=== PATIENT | female | born 1960 | race Caucasian/White ===

== ENCOUNTER 2020-04-02 07:22 | Outpatient (CLI) | payer OTHER, BC, SELFPAY ==
--- NOTE | ~2020-04-02 | DEXA_ITS ---
Bone Density Report Name: Isabela Christine Age: 60 Sex: Female Ethnicity: White Date of : 1960 Indication: postmenopausal; height loss; asthma or emphysema; hysterectomy; Referring Provider: RUIZ KEY Study: Bone densitometry was performed. Exam Date: April 02, 2020 Accession number: [id number] Bone Density: Region BMD T-score Z-score Classification AP Spine (L1, L2) 1.195 2.0 3.2 Normal Femoral Neck (Left) 0.889 0.4 1.6 Normal Total Hip (Left) 1.127 1.5 2.4 Normal Total Hip Bilateral Avg 1.078 1.1 2.0 Normal Femoral Neck (Right) 0.816 -0.3 0.9 Normal Total Hip (Right) 1.027 0.7 1.5 Normal World Health Organization criteria for BMD impression classify patients as: Normal (T-score at or above -1.0), Osteopenia (T-score between -1.0 and -2.5), or Osteoporosis (T-score at or below -2.5). 10-year Fracture Risk: FRAX not reported because: All T-scores for Spine Total, Hip Total, Femoral Neck at or above -1.0 Clinical Information Provided by Patient: Has used the following medications: Calcium Has the following medical conditions: Asthma or Emphysema, Hysterectomy Patient maximum height was 66 Menopause Age: 52 Drinks caffeinated beverages Onset of menses at age 15 Number of children 2 Impression: The patient has normal bone mass. Discussion: BONE DENSITY IS ABOVE THE MINIMUM DESIRABLE LEVEL AT ALL SKELETAL SITES TESTED. This patient?s bone mineral density is above the minimum desirable level (T-score -1.0 or better) at all sites measured. The patient should follow a healthful lifestyle (good nutrition with adequate calcium and vitamin D, and appropriate weight-bearing exercise). Follow-Up: Consider repeating this study in 5 years or sooner if there is some new clinical indication. Reported by: [facility] on 04/02/2020 7:53:00 AM. Reviewed, dictated and finalized at location A[place] MUÑIZ
--- NOTE | ~2020-04-02 | MM_ITS ---
EXAMINATION: MM screening [facility] BI w [facility] HISTORY: Screening mammogram TECHNIQUE: Craniocaudal and mediolateral oblique 3-D tomosynthesis images were obtained and synthetic 2-D images were generated. CAD analysis was submitted and interpreted. COMPARISON: 10/11/2018, 09/14/2017, 09/10/2016 BREAST PARENCHYMAL COMPOSITION: The breasts are almost entirely fatty. FINDINGS: There is no evidence of suspicious mass, calcification, or architectural distortion to sugg est malignancy in either breast. There has been no suspicious interval change. IMPRESSION: 1. No mammographic evidence of malignancy. 2. Recommend routine screening mammography in one year. BI-RADS Category 1: Negative Reviewed, dictated and finalized at location A.
== END 2020-04-02 07:23 | disposition home or self-care (01) ==
LOC: ANHIMG 07:28
PROVIDERS: PCP Family Medicine; Visit Provider Obstetrics & Gynecology
DX: Z12.31 Encounter for screening mammogram for malignant neoplasm of breast (principal); Z13.820 Encounter for screening for osteoporosis; Z78.0 Asymptomatic menopausal state
CPT/HCPCS: 77063; 77067; 77080

== ENCOUNTER 2020-08-30 15:24 | Outpatient (CLI) | payer BC, SELFPAY ==
--- NOTE | 2020-08-30 15:54 | ECG_ITS ---
Measurements Intervals [place]augen Rate: 58 P: 46 AL: 162 QRS: 80 QRSD: 89 T: 91 QT: 440 QTc: 435 Interpretive Statements SINUS BRADYCARDIA MINIMAL Q WAVES- INFERIOR LEADS NONSPECIFIC T-WAVE ABNORMALITY- ANTERIOR LEADS BORDERLINE ECG Electronically Signed On 08-30-2020 16:16:24 LEGAL EXECUTIVE by Ronn Macario D.O.
== END 2020-08-30 15:25 | disposition home or self-care (01) ==
LOC: ANHCARD 15:26
PROVIDERS: PCP Family Medicine; Visit Provider Physician Assistant
DX: R07.9 Chest pain, unspecified (principal); R94.31 Abnormal electrocardiogram [ECG] [EKG]
CPT/HCPCS: 93005

== ENCOUNTER 2021-05-16 07:38 | Outpatient (CLI) | payer BC, SELFPAY ==
--- NOTE | ~2021-05-16 | MM_ITS ---
EXAMINATION: MM screening [facility] BI w [place] HISTORY: Screening mammogram TECHNIQUE: Craniocaudal and mediolateral oblique 3-D tomosynthesis images were obtained and synthetic 2-D images were generated. CAD analysis was submitted and interpreted. COMPARISON: 04/02/2020, 10/11/2018, 09/14/2017 BREAST PARENCHYMAL COMPOSITION: There are scattered areas of fibroglandular density. FINDINGS: There is no evidence of suspicious mass, calcification, or architectural distortion to sugg est malignancy in either breast. There has been no suspicious interval change. IMPRESSION: 1. No mammographic evidence of malignancy. 2. Recommend routine screening mammography in one year. BI-RADS Category 1: Negative Reviewed, dictated and finalized at location A.
== END 2021-05-16 07:39 | disposition home or self-care (01) ==
LOC: ANHIMG 07:42
PROVIDERS: PCP Family Medicine; Visit Provider Obstetrics & Gynecology
DX: Z12.31 Encounter for screening mammogram for malignant neoplasm of breast (principal)
CPT/HCPCS: 77063; 77067

== ENCOUNTER 2022-04-21 08:52 | Outpatient (CLI) | payer BC, SELFPAY | END 2022-04-21 08:53 | disposition home or self-care (01) | LOC: ANHAUDIO 08:53 | PROVIDERS: PCP Family Medicine; Referring Provider Otolaryngology; Visit Provider Otolaryngology | DX: H91.93 Unspecified hearing loss, bilateral (principal) | CPT/HCPCS: 92557; 92567 ==

== ENCOUNTER 2022-09-24 15:32 | Outpatient (CLI) | payer BC, SELFPAY ==
--- NOTE | ~2022-09-24 | MM_ITS ---
EXAMINATION: MM screening [facility] BI w [place] HISTORY: Screening mammogram TECHNIQUE: Craniocaudal and mediolateral oblique 3-D tomosynthesis images were obtained and synthetic 2-D images were generated. CAD analysis was submitted and interpreted. COMPARISON: 05/16/2021, 04/02/2020, 10/11/2018 BREAST PARENCHYMAL COMPOSITION: There are scattered areas of fibroglandular density. FINDINGS: No suspicious mass, calcification, or architectural distortion are identified in either abigail ast to suggest malignancy. There has been no suspicious interval change. IMPRESSION: 1. No mammographic evidence of malignancy. 2. Recommend routine screening mammography in one year. BI-RADS Category 1: Negative Reviewed, dictated and finalized at location A. EY OPERATIONS DIRECTOR
== END 2022-09-24 15:33 | disposition home or self-care (01) ==
PROVIDERS: PCP Family Medicine; Visit Provider Obstetrics & Gynecology
DX: Z12.31 Encounter for screening mammogram for malignant neoplasm of breast (principal)
CPT/HCPCS: 77063; 77067

== ENCOUNTER 2023-09-30 13:55 | Outpatient (CLI) | payer BC, SELFPAY ==
--- NOTE | ~2023-09-30 | MM_ITS ---
EXAMINATION: MM screening [facility] BI w [facility] HISTORY: Screening mammogram TECHNIQUE: Craniocaudal and mediolateral oblique 3-D tomosynthesis images were obtained and synthetic 2-D images were generated. CAD analysis was submitted and interpreted. COMPARISON: 09/24/2022, 05/16/2021, 04/02/2020 BREAST PARENCHYMAL COMPOSITION: There are scattered areas of fibroglandular density. FINDINGS: No suspicious mass, calcification, or architectural distortion are identified in either abigail ast to suggest malignancy. There has been no suspicious interval change. IMPRESSION: 1. No mammographic evidence of malignancy. 2. Recommend routine screening mammography in one year. BI-RADS Category 1: Negative Reviewed, dictated and finalized at location A. ICAL DOCUMENTATION DEVELOPER
== END 2023-09-30 13:56 | disposition home or self-care (01) ==
PROVIDERS: PCP Family Medicine; Visit Provider Obstetrics & Gynecology
DX: Z12.31 Encounter for screening mammogram for malignant neoplasm of breast (principal)
CPT/HCPCS: 77063; 77067

== ENCOUNTER 2023-12-02 01:24 | Day surgery (SDC) | payer BC, SELFPAY ==
[2023-11-22 15:19] VITALS: BMI 30.7
--- NOTE | 2023-11-30 09:15 | SUR.PREOP ---
Patient called regarding upcoming procedure. Reviewed preop instructions, appointment times, and procedure prep.
[2023-12-02 07:49] VITALS: BP 116/63; PULSE 75; RESP 18; TEMP 36.1; O2SAT 100
[2023-12-02] MEDS: LACTATED RINGERS 1,000 ML 150 ML IV CONT (08:07)
--- NOTE | 2023-12-02 08:32 | WPDANESEPPF ---
Anes - Initial Pre Proc Eval Procedure: Operation Date: 12/02/23 09:00 Proposed Procedures p Screening Colonoscopy - Estevan Dillard DO Date/Time: 12/02/23 08:32 Surgeon: Estevan Dillard DO Pre Op Diagnosis: hx of colon polyps Patient Data Age: 63 Gender: F Height: 1.68 m Weight: 84.1 kg Last Vital Signs Temp 97 F L 12/02/23 07:49 Pulse 75 12/02/23 07:49 Resp 18 12/02/23 07:49 BP 116/63 12/02/23 07:49 Pulse Ox 100 12/02/23 07:49 O2 Del Method Room Air 12/02/23 07:49 Allergies Allergy/AdvReac Type Severity Reaction Status Date / Time RED MEAT Allergy Severe SWELLING, Uncoded 12/02/23 07:48 HIVES Cat Dander Allergy Intermediate RASH, Uncoded 12/02/23 07:48 SINUS ISSUES Cultivated Oat Pollen Allergy Intermediate RASH, Uncoded 12/02/23 07:48 SINUS ISSUES Dog Dander Allergy Intermediate RASH, Uncoded 12/02/23 07:48 SINUS ISSUES Grass Allergy Intermediate RASHES, Uncoded 12/02/23 07:48 SINUS ISSUES Home Medications Medication Instructions Recorded Confirmed Type cetirizine 10 mg capsule (Zyrtec) 10 mg PO DAILY PRN Allergy Symptoms 10/07/22 11/22/23 History estradiol 0.01% (0.1 mg/gram) 1 g vaginal 3XW #42.5 grams 08/18/23 11/22/23 Rx vaginal cream atorvastatin 10 mg tablet 10 mg PO DAILY #90 tabs 09/13/23 11/22/23 Rx famotidine 40 mg tablet 40 mg PO DAILY #90 tabs 09/13/23 11/22/23 Rx vibegron 75 mg tablet (Gemtesa) 75 mg PO DAILY 11/10/23 11/22/23 History buspirone 10 mg tablet 10 mg PO TID PRN Anxiety 11/22/23 11/22/23 History epinephrine 0.3 mg/0.3 mL 0.3 mg IM ONCE PRN Anaphylaxis 11/22/23 11/22/23 History injection, auto-injector (EpiPen 2-Toney) fluorouracil 5 % topical cream 1 applic topical DIRECTED 11/22/23 11/22/23 History multivitamin with minerals-folic 1 tablet PO DAILY 11/22/23 11/22/23 History acid 0.4 mg tablet Patient hx anesthesia problems: none Family hx anesthesia problems: none Results Review: All pre-operative results and documents have been reviewed as part of the pre-operative evaluation. [facility] Past Medical History Medical History Anxiety Bruises easily History of endometrial biopsy (11/30/13) benign History of genital warts Mixed hyperlipidemia Screening mammogram, encounter for Skin cancer Sleep apnea Surgical History Surgical History History of blepharoplasty History of 1986 primary c/s 1988 rpt c/s History of cholecystectomy (~2007) History of dilation and curettage (04/20/05) menometrorrhagia History of endometrial ablation (04/20/05) menometrorrhagia History of right salpingo-oophorectomy (~1990) ovarian tumor, removed by Dr Garcia History of tooth extraction History of total abdominal hysterectomy (12/14/13) [facility]--menometrorrhagia, adnexal mass, adenomyosis, leiomyoma--benign paratubal cyst Hx of tonsillectomy Family History Family History Mother Hypertension Malignant tumor of oral cavity Sibling Malignant neoplasm of skin sister brother Other Breast cancer Other Brain cancer Social History Social History (Updated 11/10/23 @ 09:19 by Alayna Powell PA-C) Smoking status: Former smoker Tobacco type: cigarettes Second hand tobacco smoke exposure: No Alcohol intake: current Drinks per week: 3 Substance use: never Substance use type: does not use Lack of Transportation: No Lack of Food: Never True Current Housing: I Have Housing Concerned About Future Housing: No Difficulty Paying Gas/Electric Bills: No Difficulty Paying for Meds: No Currently Unemployed: No Education: Master's Degree or Higher Difficulty w/ Childcare or Family Care: No Living arrangements: with family Additional
--- NOTE | 2023-12-02 08:40 | PM.IMHP ---
H&P: HPI History of Present Illness Date/Time: 12/02/23 08:40 Chief Complaint: History of colon polyps Narrative: this is a 63-year-old woman who presents for colonoscopy. Her last colonoscopy was about 8 years ago. She had colon polyps at that time. She denies any hematochezia or melena. Denies any family history of colon cancer. Review of Systems Review of Systems: All systems reviewed & are unremarkable except as noted in HPI and below Constitutional: Constitutional: Denies chills, Denies fever(s), Denies headache(s) and Denies weight loss Eyes: Eyes: Denies change in vision ENT: Denies dizziness, Denies headache(s), Denies neck mass and Denies throat swelling Cardiovascular: Cardiovascular: Denies chest pain, Denies lightheadedness and Denies dyspnea Respiratory: Respiratory: Denies cough, Denies dyspnea and Denies wheezing Gastrointestinal: Gastrointestinal: Denies abdominal pain, Denies change in bowel habits, Denies nausea and Denies vomiting Genitourinary: Genitourinary: Denies hematuria and Denies dysuria Musculoskeletal: Musculoskeletal: Reports as per HPI Integumentary/Breasts: Skin/Breast: Reports as per HPI Neurologic: Denies dizziness and Denies headache(s) Allergic/Immunologic: Allergic/Immunologic: Denies throat swelling and Denies wheezing PMFSH Past Medical History Medical History Anxiety Bruises easily History of endometrial biopsy (11/30/13) benign History of genital warts Mixed hyperlipidemia Screening mammogram, encounter for Skin cancer Sleep apnea Surgical History Surgical History History of blepharoplasty History of 1986 primary c/s 1988 rpt c/s History of cholecystectomy (~2007) History of dilation and curettage (04/20/05) menometrorrhagia History of endometrial ablation (04/20/05) menometrorrhagia History of right salpingo-oophorectomy (~1990) ovarian tumor, removed by Dr Garcia History of tooth extraction History of total abdominal hysterectomy (12/14/13) [facility]--menometrorrhagia, adnexal mass, adenomyosis, leiomyoma--benign paratubal cyst Hx of tonsillectomy Family History Family History Mother Hypertension Malignant tumor of oral cavity Sibling Malignant neoplasm of skin sister brother Other Breast cancer Other Brain cancer Social History Social History (Updated 11/10/23 @ 09:19 by Alayna Powell PA-C) Smoking status: Former smoker Tobacco type: cigarettes Second hand tobacco smoke exposure: No Alcohol intake: current Drinks per week: 3 Substance use: never Substance use type: does not use Lack of Transportation: No Lack of Food: Never True Current Housing: I Have Housing Concerned About Future Housing: No Difficulty Paying Gas/Electric Bills: No Difficulty Paying for Meds: No Currently Unemployed: No Education: Master's Degree or Higher Difficulty w/ Childcare or Family Care: No Living arrangements: with family Additional living arrangements comments: Occupation/Education: retired Gender identity (if verbalized by the patient): Female Sexual Orientation (if Verbalized by the Patient): Straight or Heterosexual Spiritual care concerns: No Agree to blood products: Yes Meds Home Medications and Allergies Home Medications Medication Instructions Recorded Confirmed Type cetirizine 10 mg capsule (Zyrtec) 10 mg PO DAILY PRN Allergy Symptoms 10/07/22 11/22/23 History estradiol 0.01% (0.1 mg/gram) 1 g vaginal 3XW #42.5 grams 08/18/23 11/22/23 Rx vaginal cream atorvastatin 10 mg tablet 10 mg PO DAILY #90 tabs 09/13/23 11/22/23 Rx famotidine 40 mg tablet 40 mg PO DAILY #90 tabs 09/13/23 11/22/23 Rx vibegron 75 mg tablet (Gemtesa) 75 mg PO DAILY 11/10/23 03
[2023-12-02 09:46] VITALS: BP 98/49; PULSE 70; RESP 19; O2SAT 100
[2023-12-02 09:56] VITALS: BP 115/75; PULSE 66; RESP 19; O2SAT 100
[2023-12-02 10:06] VITALS: BP 118/84; PULSE 62; RESP 14; O2SAT 100
== END 2023-12-02 10:12 | disposition home or self-care (01) ==
PROVIDERS: PCP Family Medicine; Visit Provider Surgery
PROC: 0DJD8ZZ Inspection of Lower Intestinal Tract, Via Natural or Artificial Opening Endoscopic (ICD-10-PCS; CPT 45378; principal; 2023-12-02 09:00)
DX: Z12.11 Encounter for screening for malignant neoplasm of colon (principal); K63.5 Polyp of colon; D12.5 Benign neoplasm of sigmoid colon; K57.30 Diverticulosis of large intestine without perforation or abscess without bleeding; F41.9 Anxiety disorder, unspecified; E78.2 Mixed hyperlipidemia; G47.30 Sleep apnea, unspecified; Z98.890 Other specified postprocedural states; Z90.49 Acquired absence of other specified parts of digestive tract; Z87.891 Personal history of nicotine dependence; Z85.828 Personal history of other malignant neoplasm of skin; Z80.8 Family history of malignant neoplasm of other organs or systems; Z84.0 Family history of diseases of the skin and subcutaneous tissue; Z80.3 Family history of malignant neoplasm of breast
CPT/HCPCS: 45385; 88305; J7120

== ENCOUNTER 2023-12-06 08:17 | Outpatient (CLI) | payer BC, SELFPAY ==
--- NOTE | ~2023-12-06 | MR_ITS ---
MRI of the cervical spine Clinical History: Spondylosis Technique: Axial T2-weighted and gradient images, and sagittal T1-weighted, T2-weighted, and STIR rachna ges were acquired. COMPARISON: 11/06/2013 Findings: There is no fracture or subluxation of the cervical spine. Vertebral bodies maintain normal height and alignment. No suspicious bone marrow signal abnormality seen. At C2-C3, there is no disc bulge or herniation. No spinal canal stenosis, cord compression, or neural foraminal narrowing. At C3-C4, there is a large central disc extrusion, likely superimposed upon a disc osteophyte complex , resulting in moderate canal stenosis and ventral cord compression, especially on the left side. The re is probable right neural foraminal narrowing, and possible minimal left neural foraminal narrowing . At C4-C5, there is mild disc osteophyte complex with minimal flattening the ventral cord. Possible mi nimal left neural foraminal narrowing. Right neural foramen preserved. At C5-C6, there is disc osteophyte complex resulting in moderate canal stenosis and cord compression. There is bilateral neural foraminal narrowing. At C6-C7, there is central disc osteophyte complex with focal flattening of the ventral cord. Bilater al neural foramina are preserved. No abnormal signal seen in the spinal cord itself. Paravertebral soft tissues are otherwise unremarka ble. Impression: Large central disc extrusion at C3-C4, superimposed upon disc osteophyte complex, resulting in modera te canal stenosis and cord compression. Disc osteophyte complex at C4-C5 with mild flattening of the ventral cord. Disc osteophyte complex at C6-C7 with focal flattening the ventral cord. Multilevel neural foraminal narrowing, as detailed above. Reviewed, dictated and finalized at [facility] M. Impression: Large central disc extrusion at C3-C4, superimposed upon disc osteophyte comple x, resulting in moderate canal stenosis and cord compression. Disc osteophyte complex at C4-C5 with mild flattening of the ventral cord. Disc osteophyte complex at C6-C7 with focal flattening the ventral cord. Multilevel neural foraminal narrowing, as detailed above.
== END 2023-12-06 08:18 ==
PROVIDERS: PCP Family Medicine; Visit Provider Physician Assistant
DX: M47.812 Spondylosis without myelopathy or radiculopathy, cervical region (principal)
CPT/HCPCS: 72141

== ENCOUNTER 2024-11-24 07:53 | Outpatient (CLI) | payer BC, SELFPAY ==
--- NOTE | ~2024-11-24 | MM_ITS ---
EXAMINATION: MM screening [facility] BI w [facility] HISTORY: Screening TECHNIQUE: Craniocaudal and mediolateral oblique 3-D tomosynthesis images were obtained and synthetic 2-D images were generated. CAD analysis was submitted and interpreted. COMPARISON: 09/30/2023 and dating back to 04/02/2020 BREAST PARENCHYMAL COMPOSITION: There are scattered areas of fibroglandular density. FINDINGS: Punctate calcifications are detected bilaterally, stable and benign in appearance. Stable parenchymal pattern without suspicious microcalcifications, architectural distortion, discrete masses or significant asymmetry. IMPRESSION: 1. No mammographic/tomographic evidence of malignancy. 2. Recommend routine screening mammography in one year. BI-RADS Category 2: Benign finding(s). Reviewed, dictated and finalized at location A. 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
--- OUTSIDE RECORDS SUMMARY | 2024-11-24 08:00 | XMS_ITS | Clinical Summary ---
Author Organization [facility] Address [address] [place] [address] Care Team Providers Care Shrimp Picker Name Role Phone Gricelda Xiao MD Primary Care Provider [phone] Social History Tobacco Use Types Packs/Day Years Used Date Smoking Tobacco: Never Assessed Comments Unknown Sex and Gender Information Value Date Recorded Sex Assigned at Not on file Legal Sex Female 8:19 PM CDT Gender Identity Not on file Sexual Orientation Not on file Last Filed Vital Signs Vital Sign Reading Time Taken Comments Blood Pressure 118/64 03/01/2014 11:19 AM CDT Pulse 60 03/01/2014 11:19 AM CDT Temperature - - Respiratory Rate - - Oxygen Saturation - - Inhaled Oxygen Concentration - - Weight 81.6 kg (180 lb) 03/01/2014 11:19 AM CDT Height 167.6 cm (5' 6 ) 03/01/2014 11:19 AM CDT Body Mass Index 29.05 03/01/2014 11:19 AM CDT Plan of Treatment Health Maintenance Due Date Last Done Comments Cervical Cancer Screening Pa p Smear (Age 30 to 64) Every 3 Years 1960 Colorectal Cancer Screening Colonoscopy (10 Years) 1960 Annual Physical 1965 Hepatitis C 01/11/1980 DTaP, Tdap and Td Vaccines ( 1 - Tdap) 1981 Cervical Cancer Screening Pa p with HPV Testing (Age 30 to 64) Every 5 Years 01/11/1992 Cervical Cancer Screening with HPV 01/11/1992 Mammogram Screening 2002 Zoster Vaccines (1 of 2) 01/11/2012 COVID-19 Vaccine (2023-2 5 season) 2024 Influenza Adult (#1) 2024 RSV Immunization or 60+ Years (1 - 1-dose 75+ series) 2037 Meningococcal B Vaccine Aged Out No l onger eligible based on patient's age to complete this topic Meningococcal Vaccine Aged Out No tru artur eligible based on patient's age to complete this topic Pneumococcal Vaccine: Pediat rics (0 to 5 Years) and At-Risk Patients (6 to 64 Years) Aged Out No longer eligible b ased on patient's age to complete this topic RSV Immunizations Under 20 Months Aged Out No longer eligible based on patient's age to complete this topic Care Teams Shrimp Picker Relationship Specialty Start Date End Date Gricelda Xiao MD PCP - General 01/30/14
--- OUTSIDE RECORDS SUMMARY | 2024-11-24 08:00 | XMS_ITS | Patient Health Summary ---
Author Organization [facility] Address [address] [place] [address] Care Team Providers Care Investigations Director Name Role Phone Gricelda Xiao MD Primary Care Provider [phone] Note from [facility],non-owned Affiliates and Associated Physician Practices is amultiple site organization consisting of ambulatory clinics and hospital sitesin [place], [place], [place] and [place]. This disclosure is being madepursuant to the Care Everywhere program and may not contain all information available regarding this patient. Last updated 18.[facility] Medications * Be aware that medications may not be up to date on this document. Alwaysverify current medications with the patient. * estrogens, conjugated, (PREMARIN) 0.3 MG tablet(Started 08/17/2016) Take 0.325 mg by mouth DAILY. * solifenacin (VESICARE) 5 MG tablet(Started 04/22/2016) Take 10 mg by mouth DAILY. 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 Trochanteric bursitis of right hip 10/16/2016 Trochanteric bursitis of left hip 10/16/2016 Pain in right hip 08/17/2016 Pain in left hip 08/17/2016 Other malaise 08/17/2016 Other fatigue 08/17/2016 Unspecified abnormal finding in specimens from other organs, systems and tissues 08/17/2016 Pain in right knee 08/17/2016 Pain in left knee 08/17/2016 Allergy to other foods 04/22/2016 Social History Tobacco Use Types Packs/Day Years Used Date Smoking Tobacco: Some Days Cigarettes Alcohol Use Standard Drinks/Week Comments Yes 0 (1 standard drink = 0.6 oz pur e alcohol) Sex and Gender Information Value Date Recorded Sex Assigned at Not on file Gender Identity Not on file Sexual Orientation Not on file Last Filed Vital Signs Vital Sign Reading Time Taken Comments Blood Pressure 120/50 10/05/2016 3:59 PM STEERSMAN Pulse 76 10/05/2016 3:59 PM STEERSMAN Temperature 36.8 C (98.2 F) 10/05/2016 3:59 PM STEERSMAN Respiratory Rate 16 10/05/2016 3:59 PM STEERSMAN Oxygen Saturation - - Inhaled Oxygen Concentration - - Weight 88 kg (194 lb) 10/05/2016 3:59 PM STEERSMAN Height 167.6 cm (5' 6 ) 10/05/2016 3:59 PM STEERSMAN Body Mass Index 31.31 10/05/2016 3:59 PM STEERSMAN Procedures * DERMATOPATHOLOGY(Performed 06/08/2018) * TISSUE TRANSGLUTAMINASE AB IGG(Performed 08/17/2016) * TISSUE TRANSGLUTAMINASE AB IGA(Performed 08/17/2016) * SS-A/SS-B (SJOGREN'S) ANTIBODY PANEL(Performed 08/17/2016) * IGA BLOOD(Performed 08/17/2016) * RHEUMATOID FACTOR BLOOD QUANTITATIVE(Performed 08/17/2016) * CYCLIC CITRULLINATED PEPTIDE(CCP) AB IGG(Performed 08/17/2016) * JOSE R BLOOD SCREEN W/REFLEX TITER(Performed 08/17/2016) * LDH BLOOD(Performed 08/17/2016) * CK BLOOD(Performed 08/17/2016) * ALDOLASE(Performed 08/17/2016) * THYROGLOBULIN ANTIBODY(Performed 08/17/2016) * VITAMIN D 25-HYDROXY(Performed 08/17/2016) * URINALYSIS W/MICROSCOPIC REFLEX TO CULTURE(Performed 08/17/2016) * THYROID PEROXIDASE ANTIBODY(Performed 08/17/2016) * T4 FREE(Performed 08/17/2016) * TSH(Performed 08/17/2016) * ERYTHROCYTE SEDIMENTATION RATE(Performed 08/17/2016) * C-REACTIVE PROTEIN(Performed 08/17/2016) * COMPREHENSIVE METABOLIC PANEL(Performed 08/17/2016) * CBC W AUTO DIFFERENTIAL(Performed 08/17/2016) * URINALYSIS MICROSCOPIC ONLY REFLEXED(Performed 08/17/2016) * XR KNEE RIGHT 3VW(Performed 08/17/2016) * XR HIP LEFT 2VW OR MORE(Performed 08/17/2016) * XR KNEE LEFT 3VW(Performed 08/17/2016) * XR HIP RIGHT 2VW OR MORE(Performed 08/17/2016) * LAB MISC TEST(Performed 04/22/2016) * ALLERGEN ALPHA GAL IGE(Performed 04/22/2016) * ALLERGEN BEEF IGE(Performed 04/22/2016) * IGE BLOOD(Performed 04/22/2016) Results * DERMATOPATHOLOGY (06/08/2018 12:00 AM CDT) Case Report Dermatopathology Report Case: [id number] Authorizing Provider: Michael Swanson MD Collected: 06/08/2018 12:00 AM Pathologist: Nicole Jasmine MD Received: 06/09/2018 11:48 AM Specimens: A) - Skin, left of midline mid sternum B) - Skin, left distal anterior lateral thigh 8 12:55 PM CDT DERMATOPATHOLOGY LABORATORY Final Diagnosis Specimen A. SKIN, left of midline mid sternum: BASAL CELL CARCINOMA, NODULAR TYPE (C44.519) Specimen B. 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 B: R/O DF vs nevus. 8 12:55 PM CDT DERMATOPATHOLOGY LABORATORY Gross Description Specimen A: Received is one formalin filled container labeled with the patient's name and designated left of midline mid sternum. The specimen consists of a shave biopsy measuring [id number]. Jar 0. Specimen B: Received is one formalin filled container labeled with the patient's name and designated left distal anterior lateral thigh. The specimen consists of a shave biopsy measuring [id number]. Jar 0. 8 12:55 PM CDT DERMATOPATHOLOGY LABORATORY Microscopic Description Specimen A. SKIN, left of midline mid sternum: Within the dermis there are aggregates of basaloid cells with a high nuclear to cytoplasmic ratio and peripheral palisading. Specimen B. SKIN, left distal anterior lateral thigh: There are nests of cytologically bland melanocytes within the dermis that mature with depth. 12:55 PM CDT DERMATOPATHOLOGY LABORATORY Disclaimer An external and internal positive and negative controls are appropriate for the histochemical, immunohistochemical and immunofluorescence stain(s) in this case (if any), except where stated explicitly. The performance characteristics of the stain(s) cited in this report were developed and its performance characteristic determined by the Dermatopathology Laboratory at [facility]. These tests need not be, and therefore are not, approved by the [place] Food and Drug Administration. The tests are used for clinical purposes. Billing Codes Specimen Charges Stain Charges 85675 25647 1 1 8 12:55 PM CDT DERMATOPATHOLOGY LABORATORY Embedded Images 8 12:55 PM CDT DERMATOPATHOLOGY LABORATORY Pathology/Cytology TISSUE SPECIMEN FROM SKIN / Unknown 06/08/2018 06/09/2018 11:48 AM CDT Miscellaneous samples (specimen) TISSUE SPECIMEN FROM SKIN / Unknown 06/08/2018 06/09/2018 11:48 AM CDT Michael Swanson MD LAB - PATHOLOGY/CYTO LOGY ORDERABLES DERMATOPATHOLOGY LABORATORY [facility] - Department of Dermatology [address] [place] [address] [phone] * (ABNORMAL) URINALYSIS MICROSCOPIC ONLY REFLEXED (08/17/2016 12:51 PM STEERSMAN) WBC, UA 0-5 0 - 5 /hpf [facility] ([facility]) RBC UA 0-2 0 - 2 /hpf [facility] ([facility]) Epithelial Cells (non renal) >10(A) 0 - 10 /hpf [facility] ([facility]) Mucus UA Present Not Estab. [facility] ([facility]) Bacteria UA Few None seen/Few [facility] ([facility]) 08/17/2016 12:5 1 PM STEERSMAN 08/17/2016 Narrative [facility] ([facility]) - 08/20/2016 7:13 AM STEERSMAN Performed at: [facility] [id number] Fur Machine Operator: Eyal Trinidad PhD, Phone: [phone] Specimen Comment: A courtesy copy of this report has been sent to Specimen Comment: [facility] Mcgowan MD P.C.. Letha Cortes MD LAB - URINALYSIS ORD ERABLES [facility] ([facility]) * URINALYSIS W/MICROSCOPIC REFLEX TO CULTURE (08/17/2016 12:51 PM STEERSMAN) Specific [place] 1.024 1.005 - 1.030 [facility] ([facility]) pH Urine 5.5 5.0 - 7.5 [facility] ([facility]) Color UA Yellow Yellow [facility] ([facility]) Appearance Clear Clear [facility] ([facility]) Leukocyte Esterase Negative Negative [facility] ([facility]) Protein UA Negative Negative/Tra ce [facility] ([facility]) Glucose UA Negative Negative [facility] ([facility]) Ketone UA Negative Negative [facility] ([facility]) Blood UA Negative Negative [facility] ([facility]) Bilirubin Negative Negative [facility] ([facility]) Urobilinogen Semi-Qn 0.2 0.2 - 1.0 mg/dL [facility] ([facility]) Nitrite UA Negative Negative [facility] ([facility]) Microscopic Examination [facility] ([facility]) Comment:Microscopic follows if indicated. Microscopic Examination See below: [facility] ([facility]) Comment:Microscopic was ganesh cated and was performed. Urinalysis Reflex [facility] ([facility]) Comment:This specimen will n ot reflex to a Urine Culture. Urine specimen (specimen) 08/17/2016 12:51 PM STEERSMAN 08/17/2016 Narrative [facility] ([facility]) - 08/20/2016 7:13 AM STEERSMAN Specimen Type->Urine Performed at: - Lab[address] [id number] Fur Machine Operator: Eyal Trinidad PhD, Phone: [phone] Specimen Comment: A courtesy copy of this report has been sent to Specimen Comment: [facility]ector Mcgowan MD P.C.. Letha Cortes MD LAB - URINALYSIS ORD ERABLES [facility] * TISSUE TRANSGLUTAMINASE AB IGG (08/17/2016 12:51 PM STEERSMAN) TTG Antibody IgG 4 0 - 5 U/mL [facility] Comment: Negative 0 - 5 Weak Positive 6 - 9 Positive >9 Blood specimen (specimen) BLOOD SPECIMEN / Unknown 08/17/2016 12:51 PM STEERSMAN 08/17/2016 Narrative [facility]) - 08/20/2016 7:13 AM STEERSMAN Performed at: [facility] [id number] Fur Machine Operator: Eyal Trinidad PhD, Phone: [phone] Specimen Comment: A courtesy copy of this report has been sent to Specimen Comment: [facility]ector Mcgowan MD P.C.. Letha Cortes MD LAB - CHEMISTRY ORDE RABLES Performing Organization Address [facility] de Phone Number [facility] [place] * TISSUE TRANSGLUTAMINASE AB IGA (08/17/2016 12:51 PM STEERSMAN) TTG Antibody IgA <2 0 - 3 U/mL [facility] ([facility] Comment: Negative 0 - 3 Weak Positive 4 - 10 Positive >10 Tissue Transglutaminase (tTG) has been identified as the endomysial antigen. Studies have demonstr- ated that endomysial IgA antibodies have over 99% specificity for gluten sensitive enteropathy. Blood specimen (specimen) BLOOD SPECIMEN / Unknown 08/17/2016 12:51 PM STEERSMAN 08/17/2016 Narrative [facility] - 08/20/2016 7:13 AM STEERSMAN Performed at: [address] [place] [id number] Fur Machine Operator: Eyal Trinidad PhD, Phone: [phone] Specimen Comment: A courtesy copy of this report has been sent to Specimen Comment: Hector Mcgowan MD P.C.. Letha Cortes MD LAB - SEROLOGY ORDER KATHIE Performing Organization Address [facility]/ZIP Co de Phone Number [facility] * RHEUMATOID FACTOR BLOOD QUANTITATIVE (08/17/2016 12:51 PM STEERSMAN) Pathologist [facility] RA latex Turbidimetry 11.1 0.0 - 13.9 IU/mL [facility] ([facility] Blood specimen (specimen) BLOOD SPECIMEN / Unknown 08/17/2016 12:51 PM STEERSMAN 08/17/2016 Narrative [facility] ([facility]) - 08/20/2016 7:13 AM STEERSMAN Performed at: [address] [place] [id number] Fur Machine Operator: Eyal Trinidad PhD, Phone: [phone] Specimen Comment: A courtesy copy of this report has been sent to Specimen Comment: Hector Mcgowan MD P.C.. Letha Cortes MD LAB - CHEMISTRY ROSA MCFADDEN Performing Organization Address [facility] de Phone Number [facility] * C-REACTIVE PROTEIN (08/17/2016 12:51 PM STEERSMAN) Pathologist [facility] C-Reactive Protein 2.9 0.0 - 4.9 mg/L [facility] ([facility]) Blood specimen (specimen) BLOOD SPECIMEN / Unknown 08/17/2016 12:51 PM STEERSMAN 08/17/2016 Narrative [facility] ([facility]) - 08/20/2016 7:13 AM STEERSMAN Performed at: [address] [place] [address] [id number] Fur Machine Operator: Eyal Trinidad PhD, Phone: [phone] Specimen Comment: A courtesy copy of this report has been sent to Specimen Comment: Hector Mcgowan MD P.C.. Letha Cortes MD LAB - CHEMISTRY ROSA MCFADDEN Performing Organization Address City/[facility] Co de Phone Number [facility]) * JOSE R BLOOD SCREEN W/REFLEX TITER (08/17/2016 12:51 PM STEERSMAN) Pathologist [facility] JOSE R IFA Negative [facility] Comment: Negative <1:80 Borderline 1:80 Positive >1:80 Blood specimen (specimen) BLOOD SPECIMEN / Unknown 08/17/2016 12:51 PM STEERSMAN 08/17/2016 Narrative [facility] - 08/20/2016 7:13 AM STEERSMAN Performed at: [address] [place] [id number] Fur Machine Operator: Eyal Trinidad PhD, Phone: [phone] Specimen Comment: A courtesy copy of this report has been sent to Specimen Comment: Hector Mcgowan MD P.C.. Letha Cortes MD LAB - CHEMISTRY ROSA MCFADDEN Performing Organization Address City/[facility] Co de Phone Number [facility] ([facility]) * SS-A/SS-B (SJOGRENS) ANTIBODY PANEL (08/17/2016 12:51 PM STEERSMAN) Sjogren's Antibodies (SSA) <0.2 0.0 - 0.9 AI [facility] ([facility]) Sjogren's Antibodies (SSB) <0.2 0.0 - 0.9 AI [facility] ([facility]) 08/17/2016 12:5 1 PM STEERSMAN 08/17/2016 Narrative [facility] ([facility]) - 08/20/2016 7:13 AM STEERSMAN Performed at: [address] [place] [address] [id number] Fur Machine Operator: Eyal Trinidad PhD, Phone: [phone] Specimen Comment: A courtesy copy of this report has been sent to Specimen Comment: Hector Mcgowan MD P.C.. Letha Cortes MD LAB - CHEMISTRY ROSA MCFADDEN Performing Organization Address City/[facility]/ZIP Co de Phone Number [facility] * THYROID PEROXIDASE ANTIBODY (08/17/2016 12:51 PM STEERSMAN) Thyroid Peroxidase TPO Antibody 12 0 - 34 IU/mL [facility] ([facility]) Blood specimen (specimen) BLOOD SPECIMEN / Unknown 08/17/2016 12:51 PM STEERSMAN 08/17/2016 Narrative [facility]) - 08/20/2016 7:13 AM STEERSMAN Performed at: [address] [place] [address] [id number] Fur Machine Operator: Eyal Trinidad PhD, Phone: [phone] Specimen Comment: A courtesy copy of this report has been sent to Specimen Comment: Hector Mcgowan MD P.C.. Letha Cortes MD LAB - CHEMISTRY ROSA MCFADDEN Performing Organization Address [facility] Co de Phone Number [facility] * THYROGLOBULIN ANTIBODY (08/17/2016 12:51 PM STEERSMAN) Thyroglobulin Antibody <1.0 0.0 - 0.9 IU/mL [facility] ([facility]) Comment:Thyroglobulin Antibo dy measured by [employer] Blood specimen (specimen) BLOOD SPECIMEN / Unknown 08/17/2016 12:51 PM STEERSMAN 08/17/2016 Narrative [facility] - 08/20/2016 7:13 AM STEERSMAN Performed at: [address] [place] [id number] Fur Machine Operator: Eyal Trinidad PhD, Phone: [phone] Specimen Comment: A courtesy copy of this report has been sent to Specimen Comment: Hector McmullenC.. Letha Cortes MD LAB - CHEMISTRY ROSA MCFADDEN Performing Organization Address [facility] Co de Phone Number [facility] ([facility]) * VITAMIN D 25-HYDROXY (08/17/2016 12:51 PM STEERSMAN) Vitamin D, 25 Hydroxy 30.2 30.0 - 100.0 ng/mL [facility] ([facility]) Comment: Vitamin D deficiency has been defined by the [place] of [employer] and an Endocrine Society practice guideline as a level of serum 25-OH vitamin D less than 20 ng/mL (1,2). The Endocrine Society went on to further define vitamin D insufficiency as a level between 21 and 29 ng/mL (2). 1. IOM ([place] [employer]). 2010. Dietary reference intakes for calcium and D. [place]: The National Academies Press. 2. Garo MF, Navi DELACRUZ, Nolan JIMENEZ, et al. Evaluation, treatment, and prevention of vitamin D deficiency: an Endocrine Society clinical practice guideline. JCEM. 2010; 96(7):1911-30. Blood specimen (specimen) BLOOD SPECIMEN / Unknown 08/17/2016 12:51 PM STEERSMAN 08/17/2016 Narrative [facility]) - 08/20/2016 7:13 AM STEERSMAN Performed at: [facility] [id number] Fur Machine Operator: Eyal Trinidad PhD, Phone: [phone] Specimen Comment: A courtesy copy of this report has been sent to Specimen Comment: Hector Mcgowan MD P.C.. Letha Cortes MD LAB - CHEMISTRY ROSA MCFADDEN Performing Organization Address [facility] Co de Phone Number [facility]) * ALDOLASE (08/17/2016 12:51 PM STEERSMAN) Aldolase 5.9 3.3 - 10.3 U/L [facility] ([employer]) Blood specimen (specimen) BLOOD SPECIMEN / Unknown 08/17/2016 12:51 PM STEERSMAN 08/17/2016 Narrative [facility] ([facility]) - 08/20/2016 7:13 AM STEERSMAN Performed at: [facility] [id number] Fur Machine Operator: Eyal Trinidad PhD, Phone: [phone] Specimen Comment: A courtesy copy of this report has been sent to Specimen Comment: Hector Mcgowan MD P.C.. Letha Cortes MD LAB - CHEMISTRY ROSA MCFADDEN Performing Organization Address [facility] Co de Phone Number [facility] ([facility]) * CYCLIC CITRUL PEPTIDE AB IGG (CCP) (08/17/2016 12:51 PM STEERSMAN) Pathologist [facility] Cyclic Citrullinated Peptide Antibody 5 0 - 19 units [facility] ([facility]) Comment: Negative <20 Weak positive 20 - 39 Moderate positive 40 - 59 Strong positive >59 Blood specimen (specimen) BLOOD SPECIMEN / Unknown 08/17/2016 12:51 PM STEERSMAN 08/17/2016 Narrative [facility]) - 08/20/2016 7:13 AM STEERSMAN Performed at: [address] [id number] Fur Machine Operator: Landen Bonilla MD, Phone: [phone] Specimen Comment: A courtesy copy of this report has been sent to Specimen Comment: Hector Mcgowan MD P.C.. Letha Cortes MD LAB - CHEMISTRY ORDE LESA Performing Organization Address City/[facility] Co de Phone Number [facility] ([facility]) * ERYTHROCYTE SEDIMENTATION RATE (08/17/2016 12:51 PM STEERSMAN) [facility] Erythrocyte Sedimentation Rate Westergren 4 0 - 40 mm/hr [facility] ([facility]) Blood specimen (specimen) BLOOD SPECIMEN / Unknown 08/17/2016 12:51 PM STEERSMAN 08/17/2016 Narrative [facility]) - 08/20/2016 7:13 AM STEERSMAN Performed at: [address] [id number] Fur Machine Operator: Eyal Trinidad PhD, Phone: [phone] Specimen Comment: A courtesy copy of this report has been sent to Specimen Comment: Hector Mcgowan MD P.C.. Letha Cortes MD LAB - HEMATOLOGY ORD ERABLES [facility] ([facility]) * CBC W AUTO DIFFERENTIAL (08/17/2016 12:51 PM STEERSMAN) [facility] WBC 5.6 3.4 - 10.8 x10E3/uL [facility] ([facility]) RBC 4.24 3.77 - 5.28 x10E6/uL [facility] ([facility]) Hemoglobin 12.6 11.1 - 15.9 g/dL [facility] ([facility]) Hematocrit 37.8 34.0 - 46.6 % [facility] ([facility]) MCV 89 79 - 97 fL [facility] ([facility]) MCH 29.7 26.6 - 33.0 pg [facility] ([facility]) MCHC 33.3 31.5 - 35.7 g/dL [facility] ([facility]) RDW-CV 13.4 12.3 - 15.4 % [facility] ([facility]) Platelet 209 150 - 379 x10E3/uL [facility] ([facility]) Neutrophils % 46 % [facility] ([facility]) Lymphocytes % 41 % [facility] ([facility]) Monocytes % 8 % [facility] ([facility]) Eosinophils % 4 % [facility] ([facility]) Basophil % 1 % [facility] ([facility]) Neutrophils Absolute 2.6 1.4 - 7.0 x10E3/uL [facility] ([facility]) Lymphocyte Absolute Manual 2.3 0.7 - 3.1 x10E3/uL [facility] ([facility]) Monocytes Absolute 0.4 0.1 - 0.9 x10E3/uL [facility] ([facility]) Eosinophils Absolute Manual 0.2 0.0 - 0.4 x10E3/uL [facility] ([facility]) Basophil Absolute Manual 0.0 0.0 - 0.2 x10E3/uL [facility] ([facility]) Immature Granulocytes % 0 % [facility] ([facility]) Immature Granulocytes absolute 0.0 0.0 - 0.1 x10E3/uL [facility] ([facility]) Blood specimen (specimen) BLOOD SPECIMEN / Unknown 08/17/2016 12:51 PM STEERSMAN 08/17/2016 Narrative [facility] ([facility]) - 08/20/2016 7:13 AM STEERSMAN Performed at: [address] [place] [address] [id number] Fur Machine Operator: Eyal Trinidad PhD, Phone: [phone] Specimen Comment: A courtesy copy of this report has been sent to Specimen Comment: Hector Mcgowan MD P.C.. Letha Cortes MD LAB - HEMATOLOGY ORD ERABLES [facility] ([facility]) * COMPREHENSIVE METABOLIC PANEL (08/17/2016 12:51 PM STEERSMAN) Glucose 79 65 - 99 mg/dL [facility] ([facility]) BUN 10 6 - 24 mg/dL [facility] ([facility]) Creatinine 0.58 0.57 - 1.00 mg/dL [facility] ([facility]) eGFR non- 105 >59 mL/min/1.7 3 [facility] ([facility]) eGFR 121 >59 mL/min/1.7 3 [facility] ([facility]) BUN/Creatinine Ratio 17 9 - 23 [facility] ([facility]) Sodium 144 136 - 144 mmol/L [facility] ([facility]) Comment: Effective August 31, 2016 the reference interval for Sodium, Serum will be changing to: 134 - 144 Potassium 4.0 3.5 - 5.2 mmol/L [facility] ([facility]) Chloride 103 97 - 106 mmol/L [facility] ([facility]) Comment: Effective August 31, 2016 the reference interval for Chloride, Serum will be changing to: 96 - 106 CO2 27 18 - 29 mmol/L [facility] ([facility]) Calcium 9.6 8.7 - 10.2 mg/dL [facility] ([facility]) Protein Total 7.0 6.0 - 8.5 g/dL [facility] ([facility]) Albumin 4.9 3.5 - 5.5 g/dL [facility] ([facility]) Globulin Total 2.1 1.5 - 4.5 g/dL [facility] ([facility]) Albumin/Globulin Ratio 2.3 1.1 - 2.5 [facility] ([facility]) Bilirubin Total 0.5 0.0 - 1.2 mg/dL [facility] ([facility]) Alkaline Phosphatase 79 39 - 117 IU/L [facility] ([facility]) AST 20 0 - 40 IU/L [facility] ([facility]) ALT 17 0 - 32 IU/L [facility] ([facility]) Blood specimen (specimen) BLOOD SPECIMEN / Unknown 08/17/2016 12:51 PM STEERSMAN 08/17/2016 Narrative [facility] ([facility]) - 08/20/2016 7:13 AM STEERSMAN Performed at: [address] [place] [address] Fur Machine Operator: Eyal Trinidad PhD, Phone: [phone] Specimen Comment: A courtesy copy of this report has been sent to Specimen Comment: Hector Mcgowan MD P.C.. Letha Cortes MD LAB - CHEMISTRY ROSA MCFADDEN Performing Organization Address [facility] Co de Phone Number [facility] ([place]) * LDH BLOOD (08/17/2016 12:51 PM STEERSMAN) [facility] Total 197 119 - 226 IU/L [facility] ([facility]) Blood specimen (specimen) BLOOD SPECIMEN / Unknown 08/17/2016 12:51 PM STEERSMAN 08/17/2016 Narrative [facility] ([facility]) - 08/20/2016 7:13 AM STEERSMAN Performed at: [address] [place] [address] [id number] Fur Machine Operator: Eyal Trinidad PhD, Phone: [phone] Specimen Comment: A courtesy copy of this report has been sent to Specimen Comment: Hector Mcgowan MD P.C.. Letha Cortes MD LAB - CHEMISTRY ROSA MCFADDEN [facility] ([facility]) * (ABNORMAL) CK BLOOD (08/17/2016 12:51 PM STEERSMAN) CK Total 197(H) 24 - 173 U/L [facility] (BE[facility]) Blood specimen (specimen) BLOOD SPECIMEN / Unknown 08/17/2016 12:51 PM STEERSMAN 08/17/2016 Narrative [facility] ([facility]) - 08/20/2016 7:13 AM STEERSMAN Performed at: [address] [place] [id number] Fur Machine Operator: Eyal Trinidad PhD, Phone: [phone] Specimen Comment: A courtesy copy of this report has been sent to Specimen Comment: Hector Mcgowan MD P.C.. Letha Cortes MD LAB - CHEMISTRY ROSA MCFADDEN Performing Organization Address City/[facility] - [place] Co de Phone Number [facility] * TSH (08/17/2016 12:51 PM STEERSMAN) TSH 2.160 0.450 - 4.500 uIU/mL [facility] Blood specimen (specimen) BLOOD SPECIMEN / Unknown 08/17/2016 12:51 PM STEERSMAN 08/17/2016 Narrative [facility] - 08/20/2016 7:13 AM STEERSMAN Performed at: [address] [place] [id number] Fur Machine Operator: Eyal Trinidad PhD, Phone: [phone] Specimen Comment: A courtesy copy of this report has been sent to Specimen Comment: Hector Mcgowan MD P.C.. Letha Cortes MD LAB - CHEMISTRY ROSA MCFADDEN Performing Organization Address [facility] de Phone Number [facility] * T4 FREE (08/17/2016 12:51 PM STEERSMAN) T4 Free 1.28 0.82 - 1.77 ng/dL [facility] Blood specimen (specimen) BLOOD SPECIMEN / Unknown 08/17/2016 12:51 PM STEERSMAN 08/17/2016 Narrative [facility] - 08/20/2016 7:13 AM STEERSMAN Performed at: [address] [place] [address] [id number] Fur Machine Operator: Eyal Trinidad PhD, Phone: [phone] Specimen Comment: A courtesy copy of this report has been sent to Specimen Comment: Hector Mcgowan MD P.C.. Letha Cortes MD LAB - CHEMISTRY ROSA MCFADDEN [facility] * IGA BLOOD (08/17/2016 12:51 PM STEERSMAN) IgA Quantitative 105 87 - 352 mg/dL [facility] [place] Blood specimen (specimen) BLOOD SPECIMEN / Unknown 08/17/2016 12:51 PM STEERSMAN 08/17/2016 Narrative [facility] [place] - 08/20/2016 7:13 AM STEERSMAN Performed at: - [address] [id number] Fur Machine Operator: Eyal Trinidad PhD, Phone: [phone] Specimen Comment: A courtesy copy of this report has been sent to Specimen Comment: Hector Mcgowan MD P.C.. 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 This report was electronically signed by KURT KEENE MD on 08/17/2016 12:02 PM . Narrative 08/17/2016 12:02 PM STEERSMAN Exam: 1. XR KNEE RIGHT 3 VW, 2. XR KNEE LEFT 3 VW History: 56-year-old female with knee pain and popping for 3 years Comparison: None available. Findings: Right knee: No acute fracture or dislocation is present. No erosions are seen. The joint spaces are normal. There is early patellofemoral compartment degenerative change with small osteophytes and a patellar subchondral cyst. There is no effusion. Bone density is normal. Left knee: No acute fracture or dislocation is present. No erosions are seen. The joint spaces are normal. There is a subchondral cyst in the patella. There is no effusion. Bone density is normal. Procedure Note Kurt Keene MD - 12/18/2017 Exam: 1. XR KNEE RIGHT 3 VW, 2. XR KNEE LEFT 3 VW History: 56-year-old female with knee pain and popping for 3 years Comparison: None available. Findings: Right knee: No acute fracture or dislocation is present. No erosions are seen. Thejoint spaces are normal. There is early patellofemoral compartmentdegenerative change with small osteophytes and a patellar subchondralcyst. There is no effusion. Bone density is normal. Left knee: No acute fracture or dislocation is present. No erosions are seen. Thejoint spaces are normal. There is a subchondral cyst in the patella. Thereis no effusion. Bone density is normal. IMPRESSION IMPRESSION: Minimal patellofemoral compartment degenerative change in bothknees. This report was electronically signed by KURT KEENE MD on08/17/2016 12:02 PM . Letha Sebastian [facility] * XR KNEE LEFT 3VW (08/17/2016 12:03 PM STEERSMAN) Anatomical Region Laterality Modality Lower Extremity Other Impressions 08/17/2016 12:02 PM STEERSMAN IMPRESSION: Minimal patellofemoral compartment degenerative change in both knees. This report was electronically signed by KURT KEENE MD on 08/17/2016 12:02 PM . Narrative 08/17/2016 12:02 PM STEERSMAN Exam: 1. XR KNEE RIGHT 3 VW, 2. XR KNEE LEFT 3 VW History: 56-year-old female with knee pain and popping for 3 years Comparison: None available. Findings: Right knee: No acute fracture or dislocation is present. No erosions are seen. The joint spaces are normal. There is early patellofemoral compartment degenerative change with small osteophytes and a patellar subchondral cyst. There is no effusion. Bone density is normal. Left knee: No acute fracture or dislocation is present. No erosions are seen. The joint spaces are normal. There is a subchondral cyst in the patella. There is no effusion. Bone density is normal. Procedure Note Kurt Keene MD - 12/18/2017 Exam: 1. XR KNEE RIGHT 3 VW, 2. XR KNEE LEFT 3 VW History: 56-year-old female with knee pain and popping for 3 years Comparison: None available. Findings: Right knee: No acute fracture or dislocation is present. No erosions are seen. Thejoint spaces are normal. There is early patellofemoral compartmentdegenerative change with small osteophytes and a patellar subchondralcyst. There is no effusion. Bone density is normal. Left knee: No acute fracture or dislocation is present. No erosions are seen. Thejoint spaces are normal. There is a subchondral cyst in the patella. Thereis no effusion. Bone density is normal. IMPRESSION IMPRESSION: Minimal patellofemoral compartment degenerative change in bothknees. This report was electronically signed by KURT KEENE MD on08/17/2016 12:02 PM . Letha Cortes MD DIAGNOSTIC IMAGING O RDERABLES * XR HIP RIGHT 2VW OR MORE (08/17/2016 12:03 PM STEERSMAN) Anatomical Region Laterality Modality Pelvis, Lower Extremity Other Impressions 08/17/2016 12:13 PM STEERSMAN Impression: No significant hip arthritis on either side. This report was electronically signed by KURT KEENE MD on 08/17/2016 12:13 PM . Narrative 08/17/2016 12:13 PM STEERSMAN Exam: 1. Right hip 2 views and AP view of the pelvis. 2. Left hip 2 views History: 56-year-old female with hip pain for 3 years Comparison: None available. Findings: Right hip: No acute fracture or dislocation is seen. The joint space is normal. No erosions are seen. A small greater trochanter enthesophyte is visible. A small calcification projects adjacent to the ischial tuberosity. The pelvic radiograph demonstrates no displaced fracture. There is mild iliac crest enthesophyte formation bilaterally. Left hip: No acute fracture or dislocation is seen. The joint space is normal. There are no erosions. Bone density is normal. A small greater trochanter enthesophyte is visible. Procedure Note Kurt Keene MD - 12/18/2017 Exam: 1. Right hip 2 views and AP view of the pelvis. 2. Left hip 2 views History: 56-year-old female with hip pain for 3 years Comparison: None available. Findings: Right hip: No acute fracture or dislocation is seen. The joint space is normal. Noerosions are seen. A small greater trochanter enthesophyte is visible. Asmall calcification projects adjacent to the ischial tuberosity. The pelvic radiograph demonstrates no displaced fracture. There is mildiliac crest enthesophyte formation bilaterally. Left hip: No acute fracture or dislocation is seen. The joint space is normal. Thereare no erosions. Bone density is normal. A small greater trochanterenthesophyte is visible. IMPRESSION Impression: No significant hip arthritis on either side. This report was electronically signed by KURT KEENE MD on08/17/2016 12:13 PM . Letha Sebastian [facility] O RDERABLES * XR HIP LEFT 2VW OR MORE (08/17/2016 12:03 PM STEERSMAN) Anatomical Region Laterality Modality Pelvis, Lower Extremity Other Impressions 08/17/2016 12:13 PM STEERSMAN Impression: No significant hip arthritis on either side. This report was electronically signed by KURT KEENE MD on 08/17/2016 12:13 PM . Narrative 08/17/2016 12:13 PM STEERSMAN Exam: 1. Right hip 2 views and AP view of the pelvis. 2. Left hip 2 views History: 56-year-old female with hip pain for 3 years Comparison: None available. Findings: Right hip: No acute fracture or dislocation is seen. The joint space is normal. No erosions are seen. A small greater trochanter enthesophyte is visible. A small calcification projects adjacent to the ischial tuberosity. The pelvic radiograph demonstrates no displaced fracture. There is mild iliac crest enthesophyte formation bilaterally. Left hip: No acute fracture or dislocation is seen. The joint space is normal. There are no erosions. Bone density is normal. A small greater trochanter enthesophyte is visible. Procedure Note Kurt Keene MD - 12/18/2017 Exam: 1. Right hip 2 views and AP view of the pelvis. 2. Left hip 2 views History: 56-year-old female with hip pain for 3 years Comparison: None available. Findings: Right hip: No acute fracture or dislocation is seen. The joint space is normal. Noerosions are seen. A small greater trochanter enthesophyte is visible. Asmall calcification projects adjacent to the ischial tuberosity. The pelvic radiograph demonstrates no displaced fracture. There is mildiliac crest enthesophyte formation bilaterally. Left hip: No acute fracture or dislocation is seen. The joint space is normal. Thereare no erosions. Bone density is normal. A small greater trochanterenthesophyte is visible. IMPRESSION Impression: No significant hip arthritis on either side. This report was electronically signed by KURT KEENE MD on08/17/2016 12:13 PM . Letha Cortes MD DIAGNOSTIC IMAGING O RDERABLES * (ABNORMAL) ALLERGEN ALPHA GALACTOSIDASE IGE (04/22/2016 2:00 PM CDT) Allergen Alpha Gal IgE 69.80(H) <0.35 kU/L [facility] Comment: Previous reports (MAYNOR 2009;123:426-433) have demonstrated that patients with IgE antibodies to ikbpoacll-e-8,3-galactose are at risk for delayed anaphylaxis, angioedema, or urticaria following consumption of beef, pork, or li. *This test was developed and its performance characteristics determined by [employer]. It has not been cleared or approved by the U.S. Food and Drug Administration. Blood specimen (specimen) BLOOD SPECIMEN / Unknown 04/22/2016 2:00 PM CDT 04/22/2016 3:55 PM CDT Narrative [facility] - 04/25/2016 8:08 PM CDT 0.3 mL serum, Serum Separator Tube (SST), Room temperature Performed at: 01 - [employer] [address] [place], [place] [id number] Fur Machine Operator: Ling Bello PhD, Phone: [phone] Viktor Lilly MD LAB - SEROLOGY ORDER KATHIE [facility] * LAB MISC TEST (04/22/2016 2:00 PM CDT) Pathologist [facility] Reference Lab Results SEE SCANNED REPORT [facility] Other (qualifier value) 04/22/2016 2:00 PM CDT 04/22/2016 4:07 PM CDT Narrative [facility] - 04/27/2016 8:48 AM CDT Test Name:->BORRELIA BURGDORFERI ANTIBODIES, TOTAL BY HANNAH Reference Lab Info:->ARUP TEST/ REFRIGERATED SERUM Viktor Lilly MD LAB SEND OUT [facility] * (ABNORMAL) ALLERGEN BEEF IGE (04/22/2016 2:00 PM CDT) [facility] Allergen Beef [id number] 29.90(A) Class V kU/L [facility] Comment: Levels of Specific IgE Class Description of Class ----- < 0.10 0 Negative 0.10 - 0.31 0/I Equivocal/Low 0.32 - 0.55 I Low 0.56 - 1.40 II Moderate 1.41 - 3.90 III High 3.91 - 19.00 IV Very High 19.01 - 100.00 V Very High >100.00 Very High Blood specimen (specimen) BLOOD SPECIMEN / Unknown 04/22/2016 2:00 PM CDT 04/22/2016 3:55 PM CDT Narrative [facility] [place]) - 04/24/2016 5:11 PM CDT 0.3 mL serum, Serum Separator Tube (SST), Room temperature Performed at: [address] [id number] Fur Machine Operator: Landen Bonilla MD, Phone: [phone] Viktor Lilly MD LAB - CHEMISTRY ORDE RABLES [facility] * (ABNORMAL) IGE BLOOD (04/22/2016 2:00 PM CDT) IgE 2378(H) 0 - 100 IU/mL [facility] Blood specimen (specimen) BLOOD SPECIMEN / Unknown 04/22/2016 2:00 PM CDT 04/22/2016 3:55 PM CDT Narrative [facility] - 04/23/2016 8:29 AM CDT 0.3mL serum, SST, Room temperature Performed at: - [address] [id number] Fur Machine Operator: Eyal Trinidad PhD, Phone: [phone] Viktor Lilly MD LAB - CHEMISTRY ROSA MCFADDEN Performing Organization Address City/[facility]/ZIP Co de Phone Number [facility] Care Teams Investigations Director Relationship Specialty Start Date End Date Gricelda Xiao MD [address] [place] [address] PCP - General 02/13/16
--- OUTSIDE RECORDS SUMMARY | 2024-11-24 08:00 | XMS_ITS | Encounter Summary ---
Author Organization [facility] Address [address] [facility] [place] [address] Care Team Providers Care Vp Business Development Name Role Phone Gricelda Xiao MD Primary Care Provider [phone] Encounter Details Date Type Department Care Team (Late st Contact Info) Description 06/09/2018 Lab Requisition [facility] Care D[facility] Lab [address] [facility], [facility] [place] [address] Michael Swanson MD [address] [place] [id number] Social History Tobacco Use Types Packs/Day Years Used Date Smoking Tobacco: Some Days Cigarettes Alcohol Use Standard Drinks/Week Comments Yes 0 (1 standard drink = 0.6 oz pur e alcohol) Sex and Gender Information Value Date Recorded Sex Assigned at Not on file Gender Identity Not on file Sexual Orientation Not on file documented as of this encounter Plan of Treatment Not on file documented as of this encounter Procedures Procedure Name Priority Date/Time Associated Diagnosis Comments DERMATOPATHOLOGY Routine 06/08/2018 12:0 0 AM CDT documented in this encounter Results * DERMATOPATHOLOGY (06/08/2018 12:00 AM CDT) Case Report Dermatopathology Report Case: [id number] Authorizing Provider: Michael Swanson MD Collected: 06/08/2018 12:00 AM Pathologist: Nicole Jasmine MD Received: 06/09/2018 11:48 AM Specimens: A) - Skin, left of midline mid sternum B) - Skin, left distal anterior lateral thigh 12:55 PM CDT DERMATOPATHOLOGY LABORATORY Final Diagnosis Specimen A. SKIN, left of midline mid sternum: BASAL CELL CARCINOMA, NODULAR TYPE (C44.519) Specimen B. 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 B: R/O DF vs nevus. 12:55 PM CDT DERMATOPATHOLOGY LABORATORY Gross Description Specimen A: Received is one formalin filled container labeled with the patient's name and designated left of midline mid sternum. The specimen consists of a shave biopsy measuring [id number]. Jar 0. Specimen B: Received is one formalin filled container labeled with the patient's name and designated left distal anterior lateral thigh. The specimen consists of a shave biopsy measuring [id number]. Jar 0. 12:55 PM CDT DERMATOPATHOLOGY LABORATORY Microscopic Description [...] characteristic determined by the Dermatopathology Laboratory at [facility]. These tests need not be, and therefore are not, approved by the [place] Food and Drug Administration. The tests are used for clinical purposes. Billing Codes Specimen Charges Stain Charges 47043 47146 1 1 12:55 PM CDT DERMATOPATHOLOGY LABORATORY Embedded Images 12:55 PM CDT DERMATOPATHOLOGY LABORATORY Pathology/Cytology TISSUE SPECIMEN FROM SKIN / Unknown 06/08/2018 06/09/2018 11:48 AM CDT Miscellaneous samples (specimen) TISSUE SPECIMEN FROM SKIN / Unknown 06/08/2018 06/09/2018 11:48 AM CDT Michael Swanson MD LAB - PATHOLOGY/CYTO LOGY ORDERABLES DERMATOPATHOLOGY LABORATORY [facility] - Department of Dermatology [facility] [facility], 5th Floor Lab B [address] [phone] documented in this encounter Visit Diagnoses Not on filedocumented in this encounter Care Teams Vp Business Development Relationship Specialty Start Date End Date Gricelda Xiao MD [address] [place] [address] PCP - General 02/13/16 documented as of this encounter
--- OUTSIDE RECORDS SUMMARY | 2024-11-24 08:00 | XMS_ITS | Clinical Summary ---
Author Organization [facility] Address [address] [place] [address] Care Team Providers Care Commercial Field Inspector Name Role Phone Gricelda Xiao MD Primary Care Provider Source Comments [facility],non-owned Affiliates and Associated Physician Practices is amultiple site organization consisting of ambulatory clinics and hospital sitesin [place], [place], [place] and [place]. This disclosure is being madepursuant to the Care Everywhere program and may not contain all information available regarding this patient. Last updated 18.[facility] [employer] Medications * Be aware that medications may not be up to date on this document. Alwaysverify current medications with the patient. Medication Sig Dispensed Refills Start Date End Date Status estrogens, conjugated, (PREMARIN) 0.3 MG tablet Take 0.325 mg by mouth DAILY. 08/17/2016 Active solifenacin (VESICARE) 5 MG tablet Take 10 mg by mouth DAILY. 04/22/2016 Active Active Problems Problem Noted Date Diagnosed Date [...] knee 08/17/2016 Allergy to other foods 04/22/2016 Family History Medical History Relation Name Comments Arthritis Maternal Grandmother Arthritis Mother Relation Name Status Comments Maternal Grandmother Mother Social History Tobacco Use Types Packs/Day Years [...] Comments Blood Pressure 120/50 10/05/2016 3:59 PM ORNAMENTER HAND Pulse 76 10/05/2016 3:59 PM ORNAMENTER HAND Temperature 36.8 C (98.2 F) 10/05/2016 3:59 PM ORNAMENTER HAND Respiratory Rate 16 10/05/2016 3:59 PM ORNAMENTER HAND Oxygen Saturation - - Inhaled Oxygen Concentration - - Weight 88 kg (194 lb) 10/05/2016 3:59 PM ORNAMENTER HAND Height 167.6 cm (5' 6 ) 10/05/2016 3:59 PM ORNAMENTER HAND Body Mass Index 31.31 10/05/2016 3:59 PM ORNAMENTER HAND Plan of Treatment Health Maintenance Due Date Last Done Comments COLOGUARD (AGES 45-75) - COL ON CA SCREENING 1962 COLON MONITORING 1962 COLONOSCOPY - COLON CA SCREENING 1962 CT COLONOGRAPHY - COLON CA SCREENING 1962 Colorectal Cancer Screening 1962 FIT - COLON CA SCREENING 1962 FLEX SIG - COLON CA SCREENING 1962 LIPID TESTING 1962 MAMMOGRAM 1962 PAP SMEAR 1962 HIV SCREENING 1977 HEPATITIS C SCREENING 01/06/1980 DTAP/TDAP/TD VACCINES (1 - Tdap) 1981 PNEUMOCOCCAL VACCINE 50+ (1 of 2 - PCV) 1981 PNEUMOCOCCAL VACCINE (1 of 2 - PCV) 1981 ZOSTER VACCINE (1 of 2) 01/11/2012 Respiratory Syncytial Virus (RSV) Vaccine Pt: or over 60 yrs (1 - Risk 60-74 years 1-dose series) 2022 COVID-19 VACCINE (1 - 2023-2 5 season) 2024 INFLUENZA VACCINE (#1) 2024 DEPRESSION SCREENING 09/20/2024 HEPATITIS B VACCINE Aged Out No longe r eligible based on patient's age to complete this topic HIB VACCINE Aged Out No longer eligi ble based on patient's age to complete this topic HPV VACCINE Aged Out No longer eligi ble based on patient's age to complete this topic MENINGOCOCCAL (Group B) VACCINE Aged Out No longer eligible based on patient's age to complete this topic MENINGOCOCCAL VACCINE Aged Out No tru artur eligible based on patient's age to complete this topic Care Teams Commercial Field Inspector Relationship Specialty Start Date End Date Gricelda Xiao MD [address] [place] [address] PCP - General 02/13/16
--- OUTSIDE RECORDS SUMMARY | 2024-11-24 08:00 | XMS_ITS | Referral Summary ---
Author Organization [facility] Address [address] [place] [address] Care Team Providers Care Plant Facilities Technician Name Role Phone Gricelda Xiao MD Primary Care Provider [phone] Source Comments [facility],non-owned Affiliates and Associated Physician Practices is amultiple site organization consisting of ambulatory clinics and hospital sitesin [place], [place], [place] and [place]. This disclosure is being madepursuant to the Care Everywhere program and may not contain all information available regarding this patient. Last updated 18.[facility] Medications * Be aware that medications may [...] Comments Blood Pressure 120/50 10/05/2016 3:59 PM PUTTY PATCHER Pulse 76 10/05/2016 3:59 PM PUTTY PATCHER Temperature 36.8 C (98.2 F) 10/05/2016 3:59 PM PUTTY PATCHER Respiratory Rate 16 10/05/2016 3:59 PM PUTTY PATCHER Oxygen Saturation - - Inhaled Oxygen Concentration - - Weight 88 kg (194 lb) 10/05/2016 3:59 PM PUTTY PATCHER Height 167.6 cm (5' 6 ) 10/05/2016 3:59 PM PUTTY PATCHER Body Mass Index 31.31 10/05/2016 3:59 PM PUTTY PATCHER Plan of Treatment Not on file Care Teams Plant Facilities Technician Relationship Specialty Start Date End Date Gricelda Xiao MD [address] [place] [address] PCP - General 02/13/16
--- OUTSIDE RECORDS SUMMARY | 2024-11-24 08:00 | XMS_ITS | Clinical Summary ---
Author Organization [facility] Address [address], [address] [address] Phone Care Team Providers Care Museum Security Chief Name Role Phone Gricelda Xiao MD Primary Care Provider [phone] Uriel Eaton DO Unavailable [phone] Medications polyethylene glycol (MIRALAX) Powder Mix the entire bottle with 64 oz of a clear liquid. Use as directed by the office for colonoscopy prep. 255 g 0 6 Active solifenacin (VESICARE) 5 MG Tablet Take 5 mg by mouth daily. Active Estrogens Conjugated (PREMARIN PO) Take 0.325 mg by mouth daily. Active Family History Medical History Relation Name Comments Skin Cancer Brother Hypertension Mother Skin Cancer Sister Relation Name Status Comments Brother Mother Sister Social History Tobacco Use Types Packs/Day Years Used Date Smoking Tobacco: Every Day Cigarettes 1 35 Alcohol Use Standard Drinks/Week Comments Yes 1 (1 standard drink = 0.6 oz pur e alcohol) Comments Unknown Sex and Gender Information Value Date Recorded Sex Assigned at Not on file Legal Sex Female 1:50 PM CDT Gender Identity Not on file Sexual Orientation Not on file Plan of Treatment Health Maintenance Due Date Last Done Comments Hepatitis C Virus (HCV) Screening 1960 TdaP Immunization 1960 Cologuard 01/11/2012 Immunochemical Fecal Occult Blood 01/11/2012 Mammogram 01/11/2012 Pneumococcal Immunization (5 0+ years) (1 of 1 - PCV) 01/11/2012 Zoster Immunization (1 of 2) 01/11/2012 Influenza Immunization (#1) 2024 SARS-COV-2 Immunization ( season) 2024 Colonoscopy 05/21/2026 05/21/2016 Colorectal Cancer Screening 05/21/2026 Respiratory Syncytial Virus (RSV) Immunization (Adult) (1 - 1-dose 75+ series) 2037 05/21/2016 Hepatitis B Immunization Aged Out No longer eligible based on patient's age to complete this topic Meningococcal Immunization (ACWY) Aged Out No longer eligible based on patient's age to complete this topic Pneumococcal Immunization Combined Aged Out No longer eligible based on patient's age to complete this topic Rotavirus Immunization Aged Out No lo nger eligible based on patient's age to complete this topic Procedures Procedure Name Priority Date/Time Associated Diagnosis Comments COLONOSCOPY Routine 05/21/2016 from Last 3 Months or Most Recently Relevant to Health Maintenance Results * COLONOSCOPY (05/21/2016) us Gricelda Xiao MD PROCEDURE/MINOR SURGICAL ORDERAB LES Final Result from Last 3 Months or Most Recently Relevant to Health Maintenance Insurance Care Teams Museum Security Chief Relationship Specialty Start Date End Date Gricelda Xiao MD [address] [place] [address] PCP - General Family Medicine 05/21/16 Uriel Eaton DO [address] [place] [address] Consulting Physician Gastroenterology 05/21/16
== END 2024-11-24 07:54 | disposition home or self-care (01) ==
LOC: ANHIMG 07:55
PROVIDERS: PCP Family Medicine; Visit Provider Obstetrics & Gynecology
DX: Z12.31 Encounter for screening mammogram for malignant neoplasm of breast (principal)
CPT/HCPCS: 77063; 77067

== ENCOUNTER 2025-07-03 10:48 | Outpatient (CLI) | payer BC, SELFPAY ==
--- NOTE | ~2025-07-03 | DEXA_ITS ---
Bone Density Report Name: DANIKA BRADLEY Age: 65 Sex: Female Ethnicity: White Date of : 1960 Indication: postmenopausal; screening for osteoporosis; height loss; prior fracture; hysterectomy; Referring Provider: GEE VERA Study: Bone densitometry was performed. Exam Date: July 03, 2025 Accession number: [id number] Bone Density: Region BMD T-score Z-score Classification AP Spine(L1, L2, L3) 1.298 2.5 4.2 Normal Femoral Neck (Left) 0.856 0.1 1.5 Normal Total Hip (Left) 1.127 1.5 2.6 Normal Femoral Neck (Right) 0.841 -0.1 1.4 Normal Total Hip (Right) 1.098 1.3 2.4 Normal Total Hip Mean 1.112 1.4 2.5 Normal World Health Organization criteria for BMD impression classify patients as: Normal (T-score at or above -1.0), Osteopenia (T-score between -1.0 and -2.5), or Osteoporosis (T-score at or below -2.5). 10-year Fracture Risk: FRAX not reported because: All T-scores for Spine Total, Hip Total, Femoral Neck at or above -1.0 Previous Exams: Region Exam Age BMD T-score BMD Change BMD Change Date g/cm2 vs Baseline vs Previous Total Hip(Left) 07/03/2025 65 1.127 1.5 0.000 (0.0%) 0.000 (0.0%) 04/02/2020 60 1.127 1.5 Total Hip(Right) 07/03/2025 65 1.098 1.3 0.071 (6.9%)* 0.071 (6.9%)* 04/02/2020 60 1.027 0.7 *Denotes significance at 95% confidence level, LSC for Total Hip = 0.027 g/cm2 Clinical Information Provided by Patient: Has had a low trauma fracture Smokes Has used the following medications: Vitamin D, Calcium Has the following medical conditions: Hysterectomy Patient maximum height was 66 Menopause Age: 52 No regular weight bearing exercise Drinks caffeinated beverages Onset of menses at age 15 Number of children 2 Missed period for more than 6 months in a row Impression: The patient has normal bone mass. The patient has risk factors, including: smoking, previous fracture. No significant bone loss was observed. Discussion: BONE DENSITY IS ABOVE THE MINIMUM DESIRABLE LEVEL AT ALL SKELETAL SITES TESTED. This patient?s bone mineral density is above the minimum desirable level (T-score -1.0 or better) at all sites measured. The patient should follow a healthful lifestyle (good nutrition with adequate calcium and vitamin D, and appropriate weight-bearing exercise). Follow-Up: Consider repeating this study in 5 years or sooner if there is some new clinical indication. Reported by: CAROL on 07/03/2025 11:48:00 AM. Reviewed, dictated and finalized at location A.
--- OUTSIDE RECORDS SUMMARY | 2025-07-03 12:56 | XMS_ITS | Clinical Summary ---
Author Organization [facility] Address [address] [place] [address] Care Team Providers Care Garment Mender Name Role Phone Gricelda Xiao MD Primary Care Provider [phone] Source Comments [facility],non-owned Affiliates and Associated Physician Practices is amultiple site organization consisting of ambulatory clinics and hospital sitesin [place], [place], [place] and [place]. This disclosure is being madepursuant to the Care Everywhere program and may not contain all information available regarding this patient. Last updated 18.[facility] Medications * Be aware that medications may not be up to date on this document. Alwaysverify current medications with the patient. estrogens, conjugated, (PREMARIN) 0.3 MG tablet Take [...] at Not on file Legal Sex Female 5:46 PM TRAP PULLER Gender Identity Not on file Sexual Orientation Not on file Last Filed Vital Signs Vital Sign Reading Time Taken Comments Blood Pressure 120/50 10/05/2016 3:59 PM TRAP PULLER Pulse 76 10/05/2016 3:59 PM TRAP PULLER Temperature 36.8 C (98.2 F) 10/05/2016 3:59 PM TRAP PULLER Respiratory Rate 16 10/05/2016 3:59 PM TRAP PULLER Oxygen Saturation - - Inhaled Oxygen Concentration - - Weight 88 kg (194 lb) 10/05/2016 3:59 PM TRAP PULLER Height 167.6 cm (5' 6) 10/05/2016 3:59 PM TRAP PULLER Body Mass Index 31.31 10/05/2016 3:59 PM TRAP PULLER Plan of Treatment Health Maintenance Due Date Last Done Comments COLOGUARD (AGES 45-75) - COL ON CA SCREENING 1962 COLON MONITORING 1962 COLONOSCOPY - COLON CA SCREENING 1962 CT COLONOGRAPHY - COLON CA SCREENING 1962 Colorectal Cancer Screening 1962 FIT - COLON CA SCREENING 1962 FLEX SIG - COLON CA SCREENING 1962 LIPID TESTING 1962 MAMMOGRAM 1962 HIV SCREENING 1977 HEPATITIS C SCREENING 01/06/1980 DTAP/TDAP/TD VACCINES (1 - Tdap) 1981 PNEUMOCOCCAL VACCINE 50+ (1 of 2 - PCV) 1981 ZOSTER VACCINE (1 of 2) 01/11/2012 Respiratory Syncytial Virus (RSV) Vaccine Pt: or over 60 yrs (1 - Risk 60-74 years 1-dose series) 2022 DEPRESSION SCREENING 09/20/2024 COVID-19 VACCINE (1 - 2023-2 5 season) 2025 INFLUENZA VACCINE (#1) 2025 HEPATITIS B VACCINE Aged Out No longe r eligible based on patient's age to complete this topic HIB VACCINE Aged Out No longer eligi ble based on patient's age to complete this topic HPV VACCINE Aged Out No longer eligi ble based on patient's age to complete this topic MENINGOCOCCAL (Group B) VACC INE SHARED DECISION-MAKING Aged Out No longer eligibl e based on patient's age to complete this topic MENINGOCOCCAL GROUPS A/C/Y/W VACCINE Aged Out No longer eligible b ased on patient's age to complete this topic Insurance [facility] SELF PAY NO INSURANCE Member Subscriber Plan / Payer (Ef fective for All Dates) Name:Isabela Christine Member ID:Not on file Relation to Subscriber:Not on file Name:ISABELA CHRISTINE Subscriber ID:Not on file Address: [address] [place] [address] Payer ID:Not on file Group ID:Not on file Type:Self Pay Address: [place], [place] [employer]/[facility] SELF PAY NO INSURANCE Member Subscriber Plan / Payer (Ef fective for All Dates) Name:Isabela Christine Member ID:Not on file Relation to Subscriber:Not on file Name:ISABELA CHRISTINE Subscriber ID:Not on file Address: [address] [place] [address] Payer ID:Not on file Group ID:Not on file Type:Self Pay Address: [place], [place] BS/[facility]UE [facility] SELF PAY NO INSURANCE Member Subscriber Plan / Payer (Ef fective for All Dates) Name:Isabela Christine Member ID:Not on file Relation to Subscriber:Not on file Name:ISABELA CHRISTINE Subscriber ID:Not on file Address: [address] [address] Payer ID:Not on file Group ID:Not on file Type:Self Pay Address: [place], [place] Care Teams Garment Mender Relationship Specialty Start Date End Date Gricelda Xiao MD [address] [place] [address] PCP - General 02/13/16
--- OUTSIDE RECORDS SUMMARY | 2025-07-03 12:56 | XMS_ITS | Clinical Summary ---
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 Announcer Name Role Phone Gricelda Xiao MD Primary Care Provider [phone] Allergies No known active allergies Medications cyclobenzaprine (FLEXERIL) 10 mg tablet Take 1 tablet (10 mg total) by mouth 2 (two) times a day as needed for muscle spasms 20 tablet 06/28/2025 Active Encounters Date Type Department Care Team Description 06/28/2025 2:32 AM CDT - 06/28/2025 6:16 AM CDT Emergency [facility] Emergency Department [address] [place] [address] Oneil Durham MD Fall, initial encounter (Primary Dx); Laceration of scalp without foreign body, initial encounter; Closed nondisplaced fracture of head of right radius, initial encounter Discharge Disposition: Discharge to home or self care 06/28/2025 Telephone [facility] Medicine Orthopaedic Surgery [facility] Advanced Medicine 6th [place] [address] [place] [phone] Marlena Dooley MD from Last 3 Months Social History Tobacco Use Types Packs/Day Years Used Date Smoking Tobacco: Never Assessed Personal Safety Answer Date Recorded Have you ever been in or are you currently in a harmful physical or emotional relationship or is someone making you feel afraid or unsafe? Denies 06/27/2025 Comments Unknown Sex and Gender Information Value Date Recorded Sex Assigned at Not on file Legal Sex Female 10:47 PM CDT Gender Identity Not on file Sexual Orientation Not on file Last Filed Vital Signs Vital Sign Reading Time Taken Comments Blood Pressure 101/48 06/28/2025 4:43 AM CDT Pulse 73 06/28/2025 4:43 AM CDT Temperature 36.7 C (98.1 F) 06/28/2025 3:28 AM CDT Respiratory Rate 18 06/28/2025 4:43 AM CDT Oxygen Saturation 100% 06/28/2025 4:43 AM CDT Inhaled Oxygen Concentration - - Weight 83.9 kg (185 lb) 06/28/2025 3:28 AM CDT Height 165.1 cm (5' 5) 06/27/2025 11:01 PM CDT Body Mass Index 30.79 06/27/2025 11:01 PM CDT Plan of Treatment Health Maintenance Due Date Last Done Comments Breast Cancer Screening-Mammogram 1962 Cervical Cancer Screening 1962 Colon Cancer Screening-Colonoscopy 1962 Depression Screening 1962 Hepatitis C Screening 1962 DTaP/Tdap/Td Vaccine (1 - Tdap) 1973 Hepatitis B Screening 01/11/1980 Regular Well Visit/Exam 18-64 01/11/1980 Zoster Vaccine (1 of 2) 01/11/2012 Influenza Vaccine (#1) 2025 , 07/11/2020, 07/16/2019 Pneumococcal vaccine <65 Aged Out No longer eligible based on patient's age to complete this topic Procedures Procedure Name Priority Date/Time Associated Diagnosis Comments ED LACERATION REPAIR Routine 06/28/2025 5:03 AM CDT XR HAND LEFT 3 OR MORE VIEWS ED 06/28/2025 4:53 AM CDT XR HUMERUS RIGHT 2 OR MORE VIEWS ED Urgent/IP Urgent 06/28/2025 3:16 AM CDT TROPONIN I HIGH-SENSITIVITY 2-HOUR Timed 06/28/2025 2:44 AM CDT EGFR STAT 06/28/2025 12:33 AM CDT DIFFERENTIAL AUTO STAT 06/28/2025 12: 33 AM CDT TROPONIN I HIGH-SENSITIVITY SERIES (BASELINE, 2HR, 4HR, 6HR) STAT 06/28/2025 12:33 AM CDT COMPREHENSIVE METABOLIC PANEL STAT 06/28/2025 12:33 AM CDT CBC WITH AUTO DIFFERENTIAL STAT 06/28/2025 12:33 AM CDT ECG 12-LEAD STAT 06/28/2025 12:15 AM CDT XR ELBOW RIGHT 3 OR MORE VIEWS ED 06/27/2025 11:42 PM CDT XR RADIUS ULNA LEFT 2 VIEWS ED 06/27/2025 11:41 PM CDT XR WRIST LEFT 3 OR MORE VIEWS ED 06/27/2025 11:41 PM CDT XR RADIUS ULNA RIGHT 2 VIEWS ED 06/27/2025 11:41 PM CDT XR WRIST RIGHT 3 OR MORE VIEWS ED 06/27/2025 11:41 PM CDT XR CHEST PA LATERAL 2 VIEWS ED 06/27/2025 11:[address] HEAD AND CERVICAL SPINE WO CONTRAST ED 06/27/2025 11:13 PM CDT from Last 3 Months Results * XR Hand Left 3 or More Views (06/28/2025 4:53 AM CDT) Anatomical Region Laterality Modality Upper Extremities, Hand Left Computed Radiography 06/28/2025 5:50 AM CDT Impressions 06/28/2025 1:47 PM CDT No acute fracture or dislocation. No radiodense foreign bodies. Dictated by: Juani Rordigez MD The radiology attending physician has personally reviewed this study, and had reviewed and/or edited this written report and agrees with it. Electronically signed by: Yvonne Crocker M.D. Narrative 06/28/2025 1:47 PM CDT EXAMINATION: XR HAND LEFT 3 OR MORE VIEWS HISTORY: bruising to middle finger COMPARISON:Radiograph on 06/27/2025r Procedure Note Yvonne Crocker MD - 06/28/2025 EXAMINATION: XR HAND LEFT 3 OR MORE VIEWS HISTORY: bruising to middle finger COMPARISON:Radiograph on 06/27/2025r IMPRESSION: No acute fracture or dislocation. No radiodense foreign bodies. Dictated by: Juani Rodrigez MD The radiology attending physician has personally reviewed this study, and had reviewed and/or edited this written report and agrees with it. Electronically signed by: Yvonne Crocker M.D. Scout Burciaga MD IMG XR PROCEDURES Final Result * XR Humerus Right 2 or More Views (06/28/2025 3:16 AM CDT) Anatomical Region Laterality Modality Upper Extremities, Upper Arm Right Com puted Radiography 06/28/2025 4:35 AM CDT Impressions 06/28/2025 1:47 PM CDT Normal limited to shoulder. Unchanged intra-articular radial head fracture. No other acute fractures. Dictated by: Juani Rodrigez MD The radiology attending physician has personally reviewed this study, and had reviewed and/or edited this written report and agrees with it. Electronically signed by: Yvonne Crocker M.D. Narrative 06/28/2025 1:47 PM CDT EXAMINATION: XR HUMERUS RIGHT 2 OR MORE VIEWS HISTORY: radial head fx COMPARISON:None Procedure Note Yvonne Crocker MD - 06/28/2025 EXAMINATION: XR HUMERUS RIGHT 2 OR MORE VIEWS HISTORY: radial head fx COMPARISON:None IMPRESSION: Normal limited to shoulder. Unchanged intra-articular radial head fracture. No other acute fractures. Dictated by: Juani Rodrigez MD The radiology attending physician has personally reviewed this study, and had reviewed and/or edited this written report and agrees with it. Electronically signed by: Yvonne Crocker M.D. Oneil Durham MD IMG XR PROCEDURES Jenni l Result * Troponin I high-sensitivity 2-hour (06/28/2025 2:44 AM CDT) [facility] Trop I hs <4 <=17 ng/L Comment: Interpretive Data For further hscTnI resources including the diagnostic algorithm and an aid in interpretation, copy and paste this link: [email or web address] Current Interpretive Data last revised 2020. Trop I hs delta 0 ng/L [facility] Trop I hs interp Insignificant [facility] Blood 06/28/2025 2:44 AM CDT 06/28/2025 3:19 AM CDT us Akhil Clifford MD LAB BLOOD ORDERABLES Final R esult Performing Organization Address [facility] Co de Phone Number [facility] [place] [address] * Troponin I high-sensitivity series (baseline, 2hr, 4hr, 6hr) (06/28/2025 12:33 AM CDT) [facility] Trop I hs <4 <=17 ng/L Comment: Interpretive Data For further hscTnI resources including the diagnostic algorithm and an aid in interpretation, copy and paste this link: [email or web address] Current Interpretive Data last revised 2020. Blood 06/28/2025 12:3 3 AM CDT 06/28/2025 1:09 AM CDT us Oneil Durham MD LAB BLOOD ORDERABLES F inal Result Performing Organization Address City/[facility]/ZIP Co de Phone Number [facility] [place] [address] * eGFR (06/28/2025 12:33 AM CDT) [facility] eGFR >90 >=60 mL/min/1. 73 m2 Comment: Interpretive Data Reference Interval Normal >/= 90 mL/min/1.73m2 Mildly decreased* 60 - 89 mL/min/1.73m2 Mildly to moderately decreased 45 - 59 mL/min/1.73m2 Moderately to severely decreased 30 - 44 mL/min/1.73m2 Severely decreased 15 - 29 mL/min/1.73m2 Kidney Failure < 15 mL/min/1.73m2 *Relative to young adult level Estimated glomerular filtration rate is determined by the 2020 CKD-EPI equation recommended by the National Kidney Foundation (A Unifying Approach to GFR Estimation: Recommendations of the NKF-ASK Task Force on Reassessing the Inclusion of Race in Diagnosing Kidney Disease, JASN 2020). The CKD-EPI equation should not be used for patients with unstable renal function and has not been validated in children and those over 70. Current interpretive data was last reviewed 2021. Blood 06/28/2025 12:3 3 AM CDT 06/28/2025 1:13 AM CDT us Oneil Durham MD LAB BLOOD ORDERABLES F inal Result [facility] Department [place] [address] * (ABNORMAL) Differential, auto (06/28/2025 12:33 AM CDT) Pathologist [facility] Neutrophil abs 8.26(H) 1.50 - 6.50 K/cumm Imm gran abs 0.05 0.00 - 0.10 K/cumm [facility] Lymphocyte abs 2.11 0.80 - 3.30 K/cumm [facility] Monocyte abs 0.92(H) 0.20 - 0.80 K/cumm [facility] Eosinophil abs 0.63(H) 0.00 - 0.50 K/cumm [facility] Basophil abs 0.09 0.00 - 0.10 K/cumm [facility] Neutrophil pct 68.6 % [facility] Comment: Interpretive Data Percent cell count reference ranges are not reported, since discordance with absolute values may lead to misinterpretation of CBC data. Current Interpretive Data was last revised on 2017. Imm gran pct 0.4 % [facility] Comment: Interpretive Data Percent cell count reference ranges are not reported, since discordance with absolute values may lead to misinterpretation of CBC data. Current Interpretive Data was last revised on 2017. Lymphocyte pct 17.5 % [facility] Comment: Interpretive Data Percent cell count reference ranges are not reported, since discordance with absolute values may lead to misinterpretation of CBC data. Current Interpretive Data was last revised on 2017. Monocyte pct 7.6 % [facility] Comment: Interpretive Data Percent cell count reference ranges are not reported, since discordance with absolute values may lead to misinterpretation of CBC data. Current Interpretive Data was last revised on 2017. Eosinophil pct 5.2 % [facility] Comment: Interpretive Data Percent cell count reference ranges are not reported, since discordance with absolute values may lead to misinterpretation of CBC data. Current Interpretive Data was last revised on 2017. Basophil pct 0.7 % [facility] Comment: Interpretive Data Percent cell count reference ranges are not reported, since discordance with absolute values may lead to misinterpretation of CBC data. Current Interpretive Data was last revised on 2017. Blood 06/28/2025 12:3 3 AM CDT 06/28/2025 1:09 AM CDT Oneil Durham MD LAB BLOOD ORDERABLES F inal Result [facility] Department [place] [address] * (ABNORMAL) CBC with auto differential (06/28/2025 12:33 AM CDT) WBC 12.06(H) 3.80 - 9.90 K/cumm Hgb 12.9 11.9 - 15.5 g/dL [facility] Hct 39.0 35.6 - 45.5 % [facility] Plt 210 150 - 400 K/cumm [facility] MPV 11.6 9.1 - 12.3 fL [facility] RBC 4.36 3.90 - 5.20 M/cumm [facility] MCV 89.4 81.3 - 96.4 fL [facility] MCH 29.6 27.1 - 33.3 pg [facility] MCHC 33.1 32.3 - 35.7 g/dL [facility] RDW CV 12.6 11.1 - 14.9 % [facility] RDW SD 41.3 35.7 - 48.1 fL [facility] NRBC abs 0.00 0.00 - 0.01 K/cumm [facility] Blood Venous blood specimen / Unknown 06/28/2025 12:33 AM CDT 06/28/2025 1:09 AM CDT Oneil Durham MD LAB BLOOD ORDERABLES F inal Result Performing Organization Address City/State/[facility] Co de Phone Number [facility] Department [place] [address] * Comprehensive metabolic panel (06/28/2025 12:33 AM CDT) Sodium 142 135 - 145 mmol/L Potassium, pl 3.6 3.3 - 4.9 mmol/L [facility] Chloride 106 97 - 110 mmol/L [facility] CO2 24 22 - 32 mmol/L [facility] Anion gap 12 2 - 15 mmol/L [facility] BUN 14 6 - 25 mg/dL [facility] Creatinine 0.72 0.60 - 1.10 mg/dL [facility] Glucose 136 70 - 199 mg/dL [facility] Comment: Interpretive Data Fasting glucose >/= 126 mg/dl is diagnostic for diabetes. Fasting is defined as no caloric intake for at least 8 hours. Fasting glucose between 100 mg/dl to 125 mg/dl is diagnostic of prediabetes. In a patient with classic symptoms of hyperglycemia or hyperglycemic crisis, a random glucose >/= 200 mg/dl is diagnostic for diabetes. In the absence of unequivocal hyperglycemia, results should be confirmed by repeat testing. The classification and Diagnosis of Diabetes Diabetes Care 202; 46: S19-S40. Current interpretive data was last revised 2022. Calcium 9.4 8.5 - 10.3 mg/dL [facility] Bilirubin, total 0.2 0.1 - 1.2 mg/dL [facility] Protein, pl 7.2 6.5 - 8.5 g/dL [facility]] Albumin 4.3 3.5 - 5.0 g/dL [facility] Alk phos 104 40 - 130 Units/L [facility] ALT 28 7 - 45 Units/L [facility] AST 36 10 - 45 Units/L [facility] Blood 06/28/2025 12:3 3 AM CDT 06/28/2025 1:09 AM CDT Oneil Durham MD LAB BLOOD ORDERABLES F inal Result Performing Organization Address City/[facility] Co de Phone Number [facility] Department [place] [address] * (ABNORMAL) ECG 12-LEAD (06/28/2025 12:15 AM CDT) Narrative [facility] - 06/28/2025 12:15 AM CDT eJremy Bauer MD 06/28/2025 12:16 AM ECG 12 lead Date/Time: 06/28/2025 12:15 AM Performed by: Jeremy Bauer MD Authorized by: Akhil Clifford MD Rate: ECG rate: 65 ECG rate assessment: normal Rhythm: Rhythm: sinus rhythm QRS: QRS axis: Normal Conduction: Conduction: normal ST segments: ST segments: Normal T waves: T waves: non-specific Previous ECG: Previous ECG: Unavailable Interpretation: Interpretation: abnormal Comments: Diffuse twave flattening rare twi Oneil Durham MD ECG ORDERABLES Final Result Performing Organization Address City/[facility]/ZIP Co de Phone Number [facility] * XR Elbow Right 3 or More Views (06/27/2025 11:42 PM CDT) Anatomical Region Laterality Modality Upper Extremities, Elbow Right Compute d Radiography 06/27/2025 11:5 9 PM CDT Impressions 06/28/2025 1:47 PM CDT CHEST: No consolidation, pleural effusion or pneumothorax. No acute displaced rib fractures. LEFT, radius, ulna, wrist: No acute fracture or dislocation. Normal alignment of the elbow and wrist. [place]iscaphe osteoarthritis. RIGHT elbow, ulna, radius, wrist: Minimally displaced, intra-articular fracture of the radius head. Moderate volume elbow effusion. No other acute fracture or dislocation. Dictated by: Juani Rodrigez MD The radiology attending physician has personally reviewed this study, and had reviewed and/or edited this written report and agrees with it. Electronically signed by: Yvonne Crocker M.D. Narrative 06/28/2025 1:47 PM CDT EXAMINATION: XR CHEST PA LATERAL 2 VIEWS, XR WRIST RIGHT 3 OR MORE VIEWS, XR RADIUS ULNA RIGHT 2 VIEWS, XR WRIST LEFT 3 OR MORE VIEWS, XR RADIUS ULNA LEFT 2 VIEWS, XR ELBOW RIGHT 3 OR MORE VIEWS HISTORY: Fell down 12 stairs of steps with bilateral elbow and wrist and thumb pain COMPARISON:none Procedure Note Yvonne Crocker MD - 06/28/2025 EXAMINATION: XR CHEST PA LATERAL 2 VIEWS, XR WRIST RIGHT 3 OR MORE VIEWS, XR RADIUS ULNA RIGHT 2 VIEWS, XR WRIST LEFT 3 OR MORE VIEWS, XR RADIUS ULNA LEFT 2 VIEWS, XR ELBOW RIGHT 3 OR MORE VIEWS HISTORY: Fell down 12 stairs of steps with bilateral elbow and wrist and thumb pain COMPARISON:none IMPRESSION: CHEST: No consolidation, pleural effusion or pneumothorax. No acute displaced rib fractures. LEFT, radius, ulna, wrist: No acute fracture or dislocation. Normal alignment of the elbow and wrist. [place]iscap[place] osteoarthritis. RIGHT elbow, ulna, radius, wrist: Minimally displaced, intra-articular fracture of the radius head. Moderate volume elbow effusion. No other acute fracture or dislocation. Dictated by: Juani Rodrigez MD The radiology attending physician has personally reviewed this study, and had reviewed and/or edited this written report and agrees with it. Electronically signed by: Yvonne Crocker M.D. Oneil Durham MD IMG XR PROCEDURES Jenni l Result * XR Radius Ulna Left 2 Views (06/27/2025 11:41 PM CDT) Anatomical Region Laterality Modality Upper Extremities, Forearm Left Compu scarlett Radiography 06/27/2025 11:5 9 PM CDT Impressions 06/28/2025 1:47 PM CDT CHEST: No consolidation, pleural effusion or pneumothorax. No acute displaced rib fractures. LEFT, radius, ulna, wrist: No acute fracture or dislocation. Normal alignment of the elbow and wrist. [place]iscaphe osteoarthritis. RIGHT elbow, ulna, radius, wrist: Minimally displaced, intra-articular fracture of the radius head. Moderate volume elbow effusion. No other acute fracture or dislocation. Dictated by: Juani Rodrigez MD The radiology attending physician has personally reviewed this study, and had reviewed and/or edited this written report and agrees with it. Electronically signed by: Yvonne Crocker M.D. Narrative 06/28/2025 1:47 PM CDT EXAMINATION: XR CHEST PA LATERAL 2 VIEWS, XR WRIST RIGHT 3 OR MORE VIEWS, XR RADIUS ULNA RIGHT 2 VIEWS, XR WRIST LEFT 3 OR MORE VIEWS, XR RADIUS ULNA LEFT 2 VIEWS, XR ELBOW RIGHT 3 OR MORE VIEWS HISTORY: Fell down 12 stairs of steps with bilateral elbow and wrist and thumb pain COMPARISON:none Procedure Note Yvonne Crocker MD - 06/28/2025 EXAMINATION: XR CHEST PA LATERAL 2 VIEWS, XR WRIST RIGHT 3 OR MORE VIEWS, XR RADIUS ULNA RIGHT 2 VIEWS, XR WRIST LEFT 3 OR MORE VIEWS, XR RADIUS ULNA LEFT 2 VIEWS, XR ELBOW RIGHT 3 OR MORE VIEWS HISTORY: Fell down 12 stairs of steps with bilateral elbow and wrist and thumb pain COMPARISON:none IMPRESSION: CHEST: No consolidation, pleural effusion or pneumothorax. No acute displaced rib fractures. LEFT, radius, ulna, wrist: No acute fracture or dislocation. Normal alignment of the elbow and wrist. [place]iscaphe osteoarthritis. RIGHT elbow, ulna, radius, wrist: Minimally displaced, intra-articular fracture of the radius head. Moderate volume elbow effusion. No other acute fracture or dislocation. Dictated by: Juani Rodrigez MD The radiology attending physician has personally reviewed this study, and had reviewed and/or edited this written report and agrees with it. Electronically signed by: Yvonne Crocker M.D. us Oneil Durham MD IMG XR PROCEDURES Jenni l Result * XR Wrist Left 3 or More Views (06/27/2025 11:41 PM CDT) Anatomical Region Laterality Modality Upper Extremities, Wrist Left Compute d Radiography 06/27/2025 11:5 9 PM CDT Impressions 06/28/2025 1:47 PM CDT CHEST: No consolidation, pleural effusion or pneumothorax. No acute displaced rib fractures. LEFT, radius, ulna, wrist: No acute fracture or dislocation. Normal alignment of the elbow and wrist. [place]iscaphe osteoarthritis. RIGHT elbow, ulna, radius, wrist: Minimally displaced, intra-articular fracture of the radius head. Moderate volume elbow effusion. No other acute fracture or dislocation. Dictated by: Juani Rodrigez MD The radiology attending physician has personally reviewed this study, and had reviewed and/or edited this written report and agrees with it. Electronically signed by: Yvonne Crocker M.D. Narrative 06/28/2025 1:47 PM CDT EXAMINATION: XR CHEST PA LATERAL 2 VIEWS, XR WRIST RIGHT 3 OR MORE VIEWS, XR RADIUS ULNA RIGHT 2 VIEWS, XR WRIST LEFT 3 OR MORE VIEWS, XR RADIUS ULNA LEFT 2 VIEWS, XR ELBOW RIGHT 3 OR MORE VIEWS HISTORY: Fell down 12 stairs of steps with bilateral elbow and wrist and thumb pain COMPARISON:none Procedure Note Yvonne Crocker MD - 06/28/2025 EXAMINATION: XR CHEST PA LATERAL 2 VIEWS, XR WRIST RIGHT 3 OR MORE VIEWS, XR RADIUS ULNA RIGHT 2 VIEWS, XR WRIST LEFT 3 OR MORE VIEWS, XR RADIUS ULNA LEFT 2 VIEWS, XR ELBOW RIGHT 3 OR MORE VIEWS HISTORY: Fell down 12 stairs of steps with bilateral elbow and wrist and thumb pain COMPARISON:none IMPRESSION: CHEST: No consolidation, pleural effusion or pneumothorax. No acute displaced rib fractures. LEFT, radius, ulna, wrist: No acute fracture or dislocation. Normal alignment of the elbow and wrist. [place]iscaphe osteoarthritis. RIGHT elbow, ulna, radius, wrist: Minimally displaced, intra-articular fracture of the radius head. Moderate volume elbow effusion. No other acute fracture or dislocation. Dictated by: Juani Rodrigez MD The radiology attending physician has personally reviewed this study, and had reviewed and/or edited this written report and agrees with it. Electronically signed by: Yvonne Crocker M.D. Oneil Durham MD IM XR PROCEDURES Jenni l Result * XR Radius Ulna Right 2 Views (06/27/2025 11:41 PM CDT) Anatomical Region Laterality Modality Upper Extremities, Forearm Right Compu scarlett Radiography 06/27/2025 11:5 9 PM CDT Impressions 06/28/2025 1:47 PM CDT CHEST: No consolidation, pleural effusion or pneumothorax. No acute displaced rib fractures. LEFT, radius, ulna, wrist: No acute fracture or dislocation. Normal alignment of the elbow and wrist. [place]iscaphe osteoarthritis. RIGHT elbow, ulna, radius, wrist: Minimally displaced, intra-articular fracture of the radius head. Moderate volume elbow effusion. No other acute fracture or dislocation. Dictated by: Juani Rodrigez MD The radiology attending physician has personally reviewed this study, and had reviewed and/or edited this written report and agrees with it. Electronically signed by: Yvonne Crocker M.D. Narrative 06/28/2025 1:47 PM CDT EXAMINATION: XR CHEST PA LATERAL 2 VIEWS, XR WRIST RIGHT 3 OR MORE VIEWS, XR RADIUS ULNA RIGHT 2 VIEWS, XR WRIST LEFT 3 OR MORE VIEWS, XR RADIUS ULNA LEFT 2 VIEWS, XR ELBOW RIGHT 3 OR MORE VIEWS HISTORY: Fell down 12 stairs of steps with bilateral elbow and wrist and thumb pain COMPARISON:none Procedure Note Yvonne Crocker MD - 06/28/2025 EXAMINATION: XR CHEST PA LATERAL 2 VIEWS, XR WRIST RIGHT 3 OR MORE VIEWS, XR RADIUS ULNA RIGHT 2 VIEWS, XR WRIST LEFT 3 OR MORE VIEWS, XR RADIUS ULNA LEFT 2 VIEWS, XR ELBOW RIGHT 3 OR MORE VIEWS HISTORY: Fell down 12 stairs of steps with bilateral elbow and wrist and thumb pain COMPARISON:none IMPRESSION: CHEST: No consolidation, pleural effusion or pneumothorax. No acute displaced rib fractures. LEFT, radius, ulna, wrist: No acute fracture or dislocation. Normal alignment of the elbow and wrist. [place]iscaphe osteoarthritis. RIGHT elbow, ulna, radius, wrist: Minimally displaced, intra-articular fracture of the radius head. Moderate volume elbow effusion. No other acute fracture or dislocation. Dictated by: Juani Rodrigez MD The radiology attending physician has personally reviewed this study, and had reviewed and/or edited this written report and agrees with it. Electronically signed by: Yvonne Crocker M.D. Oneil Durham MD IMG XR PROCEDURES Jenni l Result * XR Wrist Right 3 or More Views (06/27/2025 11:41 PM CDT) Anatomical Region Laterality Modality Upper Extremities, Wrist Right Compute d Radiography 06/27/2025 11:5 9 PM CDT Impressions 06/28/2025 1:47 PM CDT CHEST: No consolidation, pleural effusion or pneumothorax. No acute displaced rib fractures. LEFT, radius, ulna, wrist: No acute fracture or dislocation. Normal alignment of the elbow and wrist. [place]iscaphe osteoarthritis. RIGHT elbow, ulna, radius, wrist: Minimally displaced, intra-articular fracture of the radius head. Moderate volume elbow effusion. No other acute fracture or dislocation. Dictated by: Juani Rodrigez MD The radiology attending physician has personally reviewed this study, and had reviewed and/or edited this written report and agrees with it. Electronically signed by: Yvonne Crocker M.D. Narrative 06/28/2025 1:47 PM CDT EXAMINATION: XR CHEST PA LATERAL 2 VIEWS, XR WRIST RIGHT 3 OR MORE VIEWS, XR RADIUS ULNA RIGHT 2 VIEWS, XR WRIST LEFT 3 OR MORE VIEWS, XR RADIUS ULNA LEFT 2 VIEWS, XR ELBOW RIGHT 3 OR MORE VIEWS HISTORY: Fell down 12 stairs of steps with bilateral elbow and wrist and thumb pain COMPARISON:none Procedure Note Yvonne Crocker MD - 06/28/2025 EXAMINATION: XR CHEST PA LATERAL 2 VIEWS, XR WRIST RIGHT 3 OR MORE VIEWS, XR RADIUS ULNA RIGHT 2 VIEWS, XR WRIST LEFT 3 OR MORE VIEWS, XR RADIUS ULNA LEFT 2 VIEWS, XR ELBOW RIGHT 3 OR MORE VIEWS HISTORY: Fell down 12 stairs of steps with bilateral elbow and wrist and thumb pain COMPARISON:none IMPRESSION: CHEST: No consolidation, pleural effusion or pneumothorax. No acute displaced rib fractures. LEFT, radius, ulna, wrist: No acute fracture or dislocation. Normal alignment of the elbow and wrist. Triscaphe osteoarthritis. RIGHT elbow, ulna, radius, wrist: Minimally displaced, intra-articular fracture of the radius head. Moderate volume elbow effusion. No other acute fracture or dislocation. Dictated by: Juani Rodrigez MD The radiology attending physician has personally reviewed this study, and had reviewed and/or edited this written report and agrees with it. Electronically signed by: Yvonne Crocker M.D. Oneil Durham MD IMG XR PROCEDURES Jenni l Result * XR Chest PA Lateral 2 Views (If patient hemodynamically stable and ambulatory) (06/27/2025 11:41 PMCDT) Anatomical Region Laterality Modality Body, Chest N/A Computed Radiogr aphy 06/27/2025 11:5 9 PM CDT Impressions 06/28/2025 1:47 PM CDT CHEST: No consolidation, pleural effusion or pneumothorax. No acute displaced rib fractures. LEFT, radius, ulna, wrist: No acute fracture or dislocation. Normal alignment of the elbow and wrist. Triscaphe osteoarthritis. RIGHT elbow, ulna, radius, wrist: Minimally displaced, intra-articular fracture of the radius head. Moderate volume elbow effusion. No other acute fracture or dislocation. Dictated by: Juani Rodrigez MD The radiology attending physician has personally reviewed this study, and had reviewed and/or edited this written report and agrees with it. Electronically signed by: Yvonne Crocker M.D. Narrative 06/28/2025 1:47 PM CDT EXAMINATION: XR CHEST PA LATERAL 2 VIEWS, XR WRIST RIGHT 3 OR MORE VIEWS, XR RADIUS ULNA RIGHT 2 VIEWS, XR WRIST LEFT 3 OR MORE VIEWS, XR RADIUS ULNA LEFT 2 VIEWS, XR ELBOW RIGHT 3 OR MORE VIEWS HISTORY: Fell down 12 stairs of steps with bilateral elbow and wrist and thumb pain COMPARISON:none Procedure Note Yvonne Crocker MD - 06/28/2025 EXAMINATION: XR CHEST PA LATERAL 2 VIEWS, XR WRIST RIGHT 3 OR MORE VIEWS, XR RADIUS ULNA RIGHT 2 VIEWS, XR WRIST LEFT 3 OR MORE VIEWS, XR RADIUS ULNA LEFT 2 VIEWS, XR ELBOW RIGHT 3 OR MORE VIEWS HISTORY: Fell down 12 stairs of steps with bilateral elbow and wrist and thumb pain COMPARISON:none IMPRESSION: CHEST: No consolidation, pleural effusion or pneumothorax. No acute displaced rib fractures. LEFT, radius, ulna, wrist: No acute fracture or dislocation. Normal alignment of the elbow and wrist. Triscaphe osteoarthritis. RIGHT elbow, ulna, radius, wrist: Minimally displaced, intra-articular fracture of the radius head. Moderate volume elbow effusion. No other acute fracture or dislocation. Dictated by: Juani Rodrigez MD The radiology attending physician has personally reviewed this study, and had reviewed and/or edited this written report and agrees with it. Electronically signed by: Yvonne Crocker M.D. Oneil Durham MD IMG XR PROCEDURES Jenni l Result * CT Head and Cervical Spine WO Contrast (06/27/2025 11:13 PM CDT) Anatomical Region Laterality Modality Head and Neck N/A Computed Tomogra phy 06/27/2025 11:4 6 PM CDT Impressions 06/28/2025 2:27 PM CDT 1. No acute intracranial process. 2. No evidence of acute fracture in the cervical spine. Dictated by: Kelby Bhatt M.D. The radiology attending physician has personally reviewed this study, and had reviewed and/or edited this written report and agrees with it. Electronically signed by: Jeff Burns MD Narrative 06/28/2025 2:27 PM CDT EXAMINATION: 1. CT head without contrast 2. CT of the cervical spine without contrast HISTORY: Head trauma TECHNIQUE: CT of the head was performed with images acquired from skull base to vertex without intravenous contrast. CT of the cervical spine was performed according to the standard protocol without intravenous contrast. COMPARISON: None Available. FINDINGS: HEAD: There is no acute intracranial hemorrhage. Ventricles are of normal size and morphology. No mass effect or midline shift is present. The connelly-white matter differentiation is normal. Visualized portion of orbits within normal limits. The visualized portions of the mastoids are normal. Small amount of layering mucus in the sphenoid sinus. No fractures are identified. Partially empty sella. CERVICAL SPINE: Alignment within normal limits. Craniocervical junction within normal limits. No acute fracture. Multilevel degenerative changes, greatest and moderate to severe from C5-C7. Multifocal posterior disc osteophyte complexes such as at C3-C4, C5-C6, and C6-C7. Multifocal facet and uncovertebral joint arthropathy causing up to moderate left C5-C6 neural foraminal stenosis. There is moderate spinal canal stenosis at C3-C4, C5-C6, and C6-C7 in the setting of posterior disc osteophyte complexes. Right carotid artery calcifications are noted. Procedure Note Jeff Burns MD - 06/28/2025 EXAMINATION: 1. CT head without contrast 2. CT of the cervical spine without contrast HISTORY: Head trauma TECHNIQUE: CT of the head was performed with images acquired from skull base to vertex without intravenous contrast. CT of the cervical spine was performed according to the standard protocol without intravenous contrast. COMPARISON: None Available. FINDINGS: HEAD: There is no acute intracranial hemorrhage. Ventricles are of normal size and morphology. No mass effect or midline shift is present. The connelly-white matter differentiation is normal. Visualized portion of orbits within normal limits. The visualized portions of the mastoids are normal. Small amount of layering mucus in the sphenoid sinus. No fractures are identified. Partially empty sella. CERVICAL SPINE: Alignment within normal limits. Craniocervical junction within normal limits. No acute fracture. Multilevel degenerative changes, greatest and moderate to severe from C5-C7. Multifocal posterior disc osteophyte complexes such as at C3-C4, C5-C6, and C6-C7. Multifocal facet and uncovertebral joint arthropathy causing up to moderate left C5-C6 neural foraminal stenosis. There is moderate spinal canal stenosis at C3-C4, C5-C6, and C6-C7 in the setting of posterior disc osteophyte complexes. Right carotid artery calcifications are noted. IMPRESSION: 1. No acute intracranial process. 2. No evidence of acute fracture in the cervical spine. Dictated by: Kelby Bhatt M.D. The radiology attending physician has personally reviewed this study, and had reviewed and/or edited this written report and agrees with it. Electronically signed by: Jeff Burns MD Oneil Durham MD IMG CT PROCEDURES Jenni l Result from Last 3 Months Insurance [employer] OOS [employer] Care Teams Radio Board Operator Announcer Relationship Specialty Start Date End Date Gricelda Xiao MD [address] [place] [address] [address]RIZ[address] [place] [address] PCP - General Family Medicine 06/23/25
--- OUTSIDE RECORDS SUMMARY | 2025-07-03 12:56 | XMS_ITS | Encounter Summary ---
Author Organization [facility] Address [address] [place] [address] Care Team Providers Care Entry Writer Name Role Phone Gricelda Xiao MD Primary Care Provider [phone] Encounter Details Date Type Department Care Team (Late st Contact Info) Description 06/09/2018 Lab Requisition [facility] Care DermPath Lab [address] [facility] [address] [facility], [facility] [place] [id number] Michael Swanson MD [address] [place] [id number] Social History Tobacco Use Types Packs/Day Years Used Date Smoking Tobacco: Some Days Cigarettes Alcohol Use Standard Drinks/Week Comments Yes 0 (1 standard drink = 0.6 oz pur e alcohol) Comments Unknown Sex and Gender Information Value Date Recorded Sex Assigned at Not on file 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 B: R/O DF vs nevus. 12:55 PM CDT DERMATOPATHOLOGY LABORATORY Gross Description Specimen A: Received is one formalin filled container labeled with the patient's name and designated left of midline mid sternum. The specimen consists of a shave biopsy measuring [id number]. Jar 0. Specimen B: Received is one formalin filled container labeled with the patient's name and designated left distal anterior lateral thigh. The specimen consists of a shave biopsy measuring [id number]. Jar 0. 12:55 PM CDT DERMATOPATHOLOGY LABORATORY [...] characteristic determined by the Dermatopathology Laboratory at [facility]. These tests need not be, and therefore are not, approved by the [place] Food and Drug Administration. The tests are used for clinical purposes. Billing Codes Specimen Charges Stain Charges 83328 47526 1 1 12:55 PM CDT DERMATOPATHOLOGY LABORATORY Embedded Images 12:55 PM CDT DERMATOPATHOLOGY LABORATORY Pathology/Cytology TISSUE SPECIMEN FROM SKIN / Unknown 06/08/2018 06/09/2018 11:48 AM CDT Miscellaneous samples (specimen) TISSUE SPECIMEN FROM SKIN / Unknown 06/08/2018 06/09/2018 11:48 AM CDT us Michael Swanson MD LAB - PATHOLOGY/CYTOLOGY ORD ERABLES Final Result DERMATOPATHOLOGY LABORATORY [facility] - Department of Dermatology [address] [facility] [place] [address], [facility] [phone] documented in this encounter Visit Diagnoses Not on filedocumented in this encounter Care Teams Entry Writer Relationship Specialty Start Date End Date Gricelda Xiao MD [address] [place] [address] PCP - General 02/13/16 documented as of this encounter
--- OUTSIDE RECORDS SUMMARY | 2025-07-03 12:56 | XMS_ITS | Clinical Summary ---
Author Organization [facility] Address [address], [address] [address] Phone Care Team Providers Care Rv Body Mechanic Name Role Phone Gricelda Xiao MD Primary Care Provider [phone] Uriel Eaton DO Unavailable [phone] Medications polyethylene glycol (MIRALAX) Powder Mix the [...] (HCV) Screening 1960 TdaP Immunization 1960 Cologuard 2007 Immunochemical Fecal Occult Blood 2007 Pneumococcal Immunization (5 0+ years) (1 of 1 - PCV) 01/11/2012 Zoster Immunization (1 of 2) 01/11/2012 Influenza Immunization (#1) 2025 SARS-COV-2 Immunization ( season) 2025 Colonoscopy 05/21/2026 05/21/2016 Colorectal Cancer Screening 05/21/2026 Respiratory Syncytial Virus (RSV) Immunization (Adult) (1 - 1-dose 75+ series) 2037 Hepatitis B Immunization Aged Out No longer eligible based on patient's age to complete this topic Human Papillomavirus (HPV) Immunization Aged Out No longer eligible b ased [...] to Health Maintenance Results * COLONOSCOPY (05/21/2016) Gricelda Xiao MD PROCEDURE/MINOR SURGICAL ORDERAB LES Final Result from Last 3 Months or Most Recently Relevant to Health Maintenance Insurance [facility] Care Teams Rv Body Mechanic Relationship Specialty Start Date End Date Gricelda Xiao MD [address] [place] [address] PCP - General Family Medicine 05/21/16 Uriel Eaton DO [address] [place] [address] Consulting Physician Gastroenterology 05/21/16
== END 2025-07-03 10:49 | disposition home or self-care (01) ==
LOC: ANHFOHIMG 10:56
PROVIDERS: PCP Family Medicine; Visit Provider Family Medicine
DX: Z78.0 Asymptomatic menopausal state (principal)
CPT/HCPCS: 77080